=== PATIENT | female | born 1995 | race Caucasian/White ===

== ENCOUNTER → 2017-11-16 12:36 | Outpatient (CLI) | payer OTHER, SELFPAY ==
--- NOTE | 2017-11-16 12:44 | RAD_ITS ---
STUDY: X-RAY CHEST REASON FOR EXAM: Female, 22 years old. Dyspnea TECHNIQUE: Frontal and lateral views of the chest. COMPARISON: None. FINDINGS: The lungs are clear and expanded. There is no demonstrated pleural abnormality. Normal size heart. Normal mediastinum and rena. Normal visualized pulmonary arteries. Normal visualized aortic arch and descending thoracic aorta. Normal visualized thoracic spine. Normal visualized ribs, clavicles, and shoulders. There is no demonstrated abnormality of the visualized soft tissue structures of the upper abdomen. RAD/Chest PA and Lateral IMPRESSION: Normal x-ray examination of the chest. Electronically Signed: Flynn Monroy MD at 23:55 EDT , Service support ,
[2017-11-16 14:16] LABS: Hematocrit 42.2 % (37-47); Hemoglobin 13.9 g/dl (12.0-15.0); Mean Corp Hgb Conc 32.9 g/gl (32-36); Mean Corpuscular Hgb 27.5 pg (27.0-32.0); Mean Corpuscular Volume 83.4 fL (81-99); Mean Platelet Vol. 10.5 fl (6.2-12.0); Platelet Count 196 K/mm3 (150-450); RBC Distribution Width CV 12.3 % (11.6-14.6); Red Blood Count 5.06 M/mm3 (4.2-5.4); Scan Indicated on CBC? Y/N NO; White Blood Count 5.9 K/mm3 (4.4-11.0)
[2017-11-16 14:31] LABS: Anion Gap 6 (5-15); BUN 16 mg/dL (7-18); BUN/Creat Ratio 20.4 RATIO (10-20); Calcium,Total 9.4 mg/dL (8.5-10.1); Chloride 108 mmol/L (98-107); Creatinine, Serum 0.78 mg/dL (0.55-1.02); EST Glomerular Filtration Rate 98 mL/min (>60); Est Glom Filt Rate - Afr Amer 119 mL/min (>60); Glucose 88 mg/dL (74-106); Potassium 3.7 mmol/L (3.5-5.1); Sodium Level 140 mmol/L (136-145); Thyroid Stim Hormone (TSH) 1.99 uIU/mL (0.358-3.74)
== END ==
PROVIDERS: Family Provider Family Medicine; PCP Family Medicine; Visit Provider Family Medicine
DX: R06.00 Dyspnea, unspecified (principal)
CPT/HCPCS: 36415; 71046; 80048; 84443; 85027

== ENCOUNTER → 2017-12-24 11:03 | Outpatient (CLI) | payer OTHER, SELFPAY ==
--- NOTE | 2017-12-24 11:10 | RAD_ITS ---
STUDY: XR SPINE ENTIRE THORACIC T LUMBAR (W SKULL, CERVICAL AND SACRAL SPINE IF PERFORMED) REASON FOR EXAM: Female, 22 years old. Possible scoliosis. TECHNIQUE: Radiological exam, spine, entire thoracic and lumbar, including skull, cervical and sacral spine if performed (eg, scoliosis evaluation); 1 view COMPARISON: None. FINDINGS: There is a 5 degree dextroscoliosis of the thoracic spine with the apex of the convexity at the T7 level. There is a 5 degree levoscoliosis scoliosis of the lumbar spine with the apex of the convexity at the L2 level. The soft tissue structures are unremarkable. RAD/Scoliosis 1 view IMPRESSION: Mild scoliosis. Electronically Signed: Aaron Carlson MD at 9:53 EDT Tel [phone], Service support ,
== END ==
PROVIDERS: Family Provider Family Medicine; PCP Family Medicine; Visit Provider Family Medicine
DX: M41.9 Scoliosis, unspecified (principal); R06.00 Dyspnea, unspecified
CPT/HCPCS: 72081

== ENCOUNTER → 2018-01-11 10:41 | Outpatient (CLI) | payer OTHER, SELFPAY ==
--- NOTE | 2018-01-11 10:41 | DT_ITS ---
This patient was seen during an EMR downtime January 07, 2018 - January 14, 2018. This patient may have a combination of paper and electronic documentation or all paper documentation. All documentation is viewable within the e-chart portion of [employer] for each patient visit.
--- NOTE | 2018-01-11 10:47 | ECHOD_ITS ---
Reason For Study: SOB Procedure This was a 2D Doppler, Color Flow transthoracic echocardiogram. Exam performed in department. Left Ventricle Normal LV size. Left ventricular systolic function is normal. The estimated ejection fraction is 55 %. No evidence for diastolic dysfunction. No regional wall motion abnormalities noted. Right Ventricle Normal RV size. Normal systolic function. Atria Normal left atrium. Normal right atrium. Mitral Valve Normal mitral valve. Tricuspid Valve Normal tricuspid valve. Mild (1+) tricuspid valve insufficiency. Pulmonary artery systolic pressure is 20 mmHg. Aortic Valve Normal aortic valve. Trisinus/trileaflet aortic valve. Pulmonic Valve Normal pulmonic valve. Great Vessels Normal aortic root. The pulmonary artery is normal size. Normal inferior vena cava. Pericardium/Pleural No pericardial effusion. MMode/2D Measurements & Calculations LVIDd: 3.5 cm IVSd: 0.88 cm Ao root diam: 2.8 cm LVIDs: 2.4 cm LVPWd: 0.75 cm LA dimension: 2.4 cm RVDd: 2.6 cm FS: 32.2 % LAV(MOD-bp): 20.8 ml EDV(MOD-sp4): 53.5 ml SV(MOD-sp4): 33.6 ml LAV(MOD-bp) Indexed: 11.8 ml/m2 ESV(MOD-sp4): 19.8 ml LAV(MOD-sp2): 22.4 ml EF(MOD-sp4): 62.9 % LAV(MOD-sp4): 18.6 ml LA A4 area: 9.4 cm2 RA A4 area: 7.0 cm2 Doppler Measurements & Calculations MV E max lemuel: 110.9 cm/sec Lat Peak E' Lemuel: 12.2 cm/sec Med Peak E' Lemuel: 10.3 cm/sec MV A max lemuel: 71.7 cm/sec E/E' lat: 9.1 E/E' med: 10.7 MV E/A: 1.5 Ao V2 max: 120.5 cm/sec LV V1 max: 90.9 cm/sec PA V2 max: 106.3 cm/sec Ao max P.8 mmHg LV V1 max P.3 mmHg TR max lemuel: 202.6 cm/sec TR max P.4 mmHg Interpretation Summary Normal LV size. Left ventricular systolic function is normal. The estimated ejection fraction is 55 %. No evidence for diastolic dysfunction. Structurally normal valves. Ordering Physician: Carlo Martinez Referring Physician: Carlo Martinez Performed By: Fawn Isaacs RDCS
== END ==
PROVIDERS: Family Provider Family Medicine; PCP Family Medicine; Visit Provider Family Medicine
DX: R06.00 Dyspnea, unspecified (principal)
CPT/HCPCS: 93306

== ENCOUNTER → 2018-07-04 15:19 | Outpatient (CLI) | payer OTHER, SELFPAY ==
[2014-04-25 13:49] VITALS: BMI 16.2
[2018-07-04 17:33] LABS: Hematocrit 39.9 % (37-47); Hemoglobin 13.6 g/dl (12.0-15.0); Mean Corp Hgb Conc 34.1 g/gl (32-36); Mean Corpuscular Hgb 28.7 pg (27.0-32.0); Mean Corpuscular Volume 84.2 fL (81-99); Mean Platelet Vol. 11.1 fl (6.2-12.0); Platelet Count 192 K/mm3 (150-450); RBC Distribution Width CV 12.4 % (11.6-14.6); RBC Distribution Width SD 36.9 fl (35.1-43.9); Red Blood Count 4.74 M/mm3 (4.2-5.4); White Blood Count 6.7 K/mm3 (4.4-11.0)
[2018-07-04 17:39] LABS: Scan Indicated on CBC? Y/N NO
[2018-07-04 17:53] LABS: Erythrocyte Sedimentation Rate 1 mm/hr (0-20)
[2018-07-04 18:02] LABS: Vitamin B12 368 pg/mL (211-911); Vitamin D,25 Hydroxy 13.9 ng/mL (29.95-100.01)
[2018-07-04 18:07] LABS: BUN 10 mg/dL (7-18); Creatinine, Serum 0.86 mg/dL (0.55-1.02); Glucose 71 mg/dL (74-106)
[2018-07-04 18:08] LABS: ALB/GLOB Ratio 1.3 RATIO (0.9-2.4); AST(SGOT) 16 U/L (15-37); Alanine Aminotransfer ALT/SGPT 20 U/L (13-56); Albumin, Serum 4.3 g/dL (3.2-5.0); Alkaline Phosphatase 68 U/L (45-117); Anion Gap 9 (5-15); BUN/Creat Ratio 11.6 RATIO (10-20); Calcium,Total 9.1 mg/dL (8.5-10.1); Chloride 109 mmol/L (98-107); EST Glomerular Filtration Rate 87 mL/min (>60); Est Glom Filt Rate - Afr Amer 106 mL/min (>60); Globulin 3.3 g/dL (2.2-4.2); Iron 81 ug/dL (50-170); Potassium 3.7 mmol/L (3.5-5.1); Protein, Total 7.6 g/dL (6.4-8.2); Sodium Level 142 mmol/L (136-145); Thyroid Stim Hormone (TSH) 1.17 uIU/mL (0.358-3.74)
--- OUTSIDE RECORDS SUMMARY | 2018-08-29 21:29 | XMS RPT_ITS ---
:1995 Author Organization OHIP Support Name Relationship Address Phone ACCESS LIMITED Unavailable . + [place] [address] BEBOUT, SHANDRA Unavailable [address] + [place] [address] FORDENWALT, TERE Unavailable [address] + [place] [address] BEBOUT, YADY Unavailable [address] + [place] [address] ACCESS LIMITED Unavailable . + [place] [address] BEBOUT, SHANDRA Unavailable [address] + [place] [address] FORDENWALT, TERE Unavailable [address] + [place] [address] ACCESS LIMITED Unavailable . + [place] [address] BEBOUT, SHANDRA Unavailable [address] + [place] [address] FORDENWALT, TERE Unavailable [address] + [place] [address] ACCESS LIMITED Unavailable . + [place] [address] BEBOUT, SHANDRA Unavailable [address] + [place] [address] FORDENWALT, TERE Unavailable [address] + [place] [address] ACCESS LIMITED Unavailable . + [place] [address] BEBOUT, SHANDRA Unavailable [address] + [place] [address] TERE MUHAMMAD Unavailable [address] + [place] [address] Care Team Providers Name Role Phone MASOUD PAYTON Attending Unavailable TATAMASOUD Referring Unavailable CHRISTIANO RAYA Primary Care Unavailable Carl Rayaer Attending Unavailable Michelle, Christadrianer Primary Care Unavailable Randaysi, Christopher Attending Unavailable Ranney, Christopher Referring Unavailable Ranney, Christopher Primary Care Unavailable Ranney, Christopher Attending Unavailable Ranney, Christopher Referring Unavailable Ranney, Christopher Primary Care Unavailable ProsperMarty cheathamril Attending Unavailable Ranney, Christopher Referring Unavailable Ranney, Christopher Attending Unavailable Ranney, Christopher Primary Care Unavailable PROBLEMS PROBLEMS DATE TYPE CONDITION / CODE ATTENDING STATUS SOURCE 01/30/2018 Unknown R06.00 - Dyspnea, Ranney, Active Laura unspecified / [facility] R06.00(ICD-10) Hospital Repository 02/15/2018 Unknown R06.02 - Prosper, [place] Active [facility] R06.02(ICD-10) Repository 01/18/2018 Unknown M41.9 - Ranney, Active Laura Scoliosis, [facility] unspecified / Hospital M41.9(ICD-10) Repository PROCEDURES PROCEDURES No Procedure Records FoundRESULTS RESULTS CBC-COMPLETE BLOOD CNT Collected: 07/04/2018 Status: F Source: [place] NO DIFF 3:20 PM [facility] REPOSITORY TYPE CODE TESTS RESULT OUT OF RANGE REFERENCE UNITS LAB L100.1000 4.4-11.0 K/mm3 Normal WBC 6.7 LAB L100.1200 4.2-5.4 M/mm3 Normal RBC 4.74 LAB L100.1300 12.0-15.0 g/dl Normal HGB 13.6 LAB L100.1400 37-47 % Normal HCT 39.9 LAB L100.1500 81-99 fL Normal MCV 84.2 LAB L100.1600 27.0-32.0 pg Normal MCH 28.7 LAB L100.1700 32-36 g/gl Normal MCHC 34.1 LAB L100.1810 11.6-14.6 % Normal RDW CV 12.4 LAB L100.1820 35.1-43.9 fl Normal RDW SD 36.9 LAB L100.1900 150-450 K/mm3 Normal PLT 192 LAB L100.2000 6.2-12.0 fl Normal MPV 11.1 Performed By: #### L100.0500, L101.9900, L503.0105, L506.1000, L500.4050, L501.9520, L503.6150 #### [facility] [address] [place], [address] ERYTHROCYTE SED RATE Collected: 07/04/2018 Status: F Source: [place] 3:20 PM [facility] REPOSITORY TYPE CODE TESTS RESULT OUT OF RANGE REFERENCE UNITS LAB L102.0000 0-20 mm/hr Normal SED RATE 1 Performed By: #### L100.0500, L101.9900, L503.0105, L506.1000, L500.4050, L501.9520, L503.6150 #### [facility] [address] [place], [address] VITAMIN B12 Collected: 07/04/2018 Status: F Source: [place] 3:20 PM [facility] REPOSITORY TYPE CODE TESTS RESULT OUT OF RANGE REFERENCE UNITS LAB L503.0105 211-911 pg/mL Normal Vitamin B12 368 Performed By: #### L100.0500, L101.9900, L503.0105, L506.1000, L500.4050, L501.9520, L503.6150 #### [facility] [address] [place], [address] VITAMIN D,25 HYDROXY Collected: 07/04/2018 Status: F Source: [place] 3:20 PM [facility] REPOSITORY TYPE CODE TESTS RESULT OUT OF REFERENCE UNITS RANGE LAB L506.1000 29.95-100.01 ng/mL Low Vitamin D 13.9 25-OH Result Comment: Vitamin D 25(OH) Status Range Deficiency <20 ng/mL (50nmol/L) Insuffciency 20 - 30 ng/mL (50 - 75 nmol/L) Sufficiency 30 - 100 ng/mL (75 - 250 nmol/L) Toxicity >100 ng/mL (>250 nmol/L) Performed By: #### L100.0500, L101.9900, L503.0105, L506.1000, L500.4050, L501.9520, L503.6150 #### [facility] [address] [place], [address] COMPREHENSIVE METABOLIC Collected: 07/04/2018 Status: F Source: [place] [facility] 3:20 PM [facility] REPOSITORY TYPE CODE TESTS RESULT OUT OF RANGE REFERENCE UNITS LAB L501.0100 74-106 mg/dL Low GLU 71 Result Comment: Please note revised GLUCOSE reference range effective 2017. LAB L501.1000 7-18 mg/dL Normal BUN 10 LAB L501.1100 0.55-1.02 mg/dL Normal CREAT,SERUM 0.86 Result Comment: The validity of the calculated GFR AND GFRAA in patients over 70 years has not been determined. Clinical correlation is essential. LAB L501.1110 >60 mL/min Normal EST GFR 87 Result Comment: Non- GFR Calc LAB L501.1115 >60 mL/min Normal EST GFR - AA 106 Result Comment: GFR Calc LAB L501.1300 10-20 RATIO Normal BUN/CRE 11.6 LAB L501.1500 6.4-8.2 g/dL T Normal PROT 7.6 LAB L501.1800 3.2-5.0 g/dL Normal ALB 4.3 LAB L501.1950 2.2-4.2 g/dL Normal GLOB 3.3 LAB L501.2000 0.9-2.4 RATIO Normal A/G 1.3 LAB L501.2200 8.5-10.1 mg/dL CA Normal 9.1 LAB L501.4100 15-37 U/L Normal AST 16 LAB L501.4305 45-117 U/L Normal ALK P 68 LAB L501.4405 13-56 U/L Normal ALT 20 LAB L501.4600 0.20-1.00 mg/dL T Normal BILI 0.50 LAB L501.5300 136-145 mmol/L NA Normal 142 LAB L501.5600 3.5-5.1 mmol/L K Normal 3.7 LAB L501.5900 98-107 mmol/L High CL 109 LAB L501.6100 21.0-32.0 mmol/L Normal CO2 24.0 LAB L501.6200 5-15 Normal GAP 9 Performed By: #### L100.0500, L101.9900, L503.0105, L506.1000, L500.4050, L501.9520, L503.6150 #### [facility] [address] [place], [address] THYROID STIM HORMONE Collected: 07/04/2018 Status: F Source: [place] (TSH) 3:20 PM [facility] REPOSITORY TYPE CODE TESTS RESULT OUT OF RANGE REFERENCE UNITS LAB L501.9520 0.358-3.74 uIU/mL Normal TSH 1.17 Performed By: #### L100.0500, L101.9900, L503.0105, L506.1000, L500.4050, L501.9520, L503.6150 #### [facility] [address] [facility] [place], [address] IRON Collected: 07/04/2018 Status: F Source: [place] 3:20 PM [facility] REPOSITORY TYPE CODE TESTS RESULT OUT OF RANGE REFERENCE UNITS LAB L503.6150 50-170 ug/dL Normal IRON 81 Performed By: #### L100.0500, L101.9900, L503.0105, L506.1000, L500.4050, L501.9520, L503.6150 #### [facility] [address] [facility] [place], [address] DOWNTIME REPORT Observed: 01/24/2018 Status: F Source: [place] 12:23 PM [facility] REPOSITORY [facility] Medical Records Department [address] [place] [address] Downtime Report MR#: [id number] Acct: [id number] Name: CHANTEL DEL ROSARIO Rep #: [id number] : 1995 22 From: Mayank Raphael PCP: Christiano Raya MD Status: REG CLI This patient was seen during an EMR downtime January 07, 2018 - January 14, 2018. This patient may have a combination of paper and electronic documentation or all paper documentation. All documentation is viewable within the e-chart portion of [employer] for each patient visit. ECHOCARDIOGRAM COMPLETE Observed: 01/16/2018 Status: F Source: [place] 10:14 AM [facility] REPOSITORY [facility] Cardiovascular Services [address] [place] [address] Echo Complete 01/11/18 1100 MR#: [id number] Acct: [id number] Name: CHANTEL DEL ROSARIO Rep #: [id number] : 1995 From: Az Cheng MD Attending Dr: Christiano Raya MD Status: REG CLI Ordering Dr: Rony Raya MD Date: 01/11/18 Location: [facility] Sex: F C Admitted: Reason For Study: SOB Procedure This was a 2D Doppler, Color Flow transthoracic echocardiogram. Exam performed in department. Left Ventricle Normal LV size. Left ventricular systolic function is normal. The estimated ejection fraction is 55 %. No evidence for diastolic dysfunction. No regional wall motion abnormalities noted. Right Ventricle Normal RV size. Normal systolic function. Atria Normal left atrium. Normal right atrium. Mitral Valve Normal mitral valve. Tricuspid Valve Normal tricuspid valve. Mild (1+) tricuspid valve insufficiency. Pulmonary artery systolic pressure is 20 mmHg. Aortic Valve Normal aortic valve. Trisinus/trileaflet aortic valve. Pulmonic Valve Normal pulmonic valve. Great Vessels Normal aortic root. The pulmonary artery is normal size. Normal inferior vena cava. Pericardium/Pleural No pericardial effusion. MMode/2D Measurements AND Calculations LVIDd: 3.5 cm IVSd: 0.88 cm Ao root diam: 2.8 cm LVIDs: 2.4 cm LVPWd: 0.75 cm LA dimension: 2.4 cm RVDd: 2.6 cm FS: 32.2 % LAV(MOD-bp): 20.8 ml EDV(MOD-sp4): 53.5 ml SV(MOD-sp4): 33.6 ml LAV(MOD-bp) Indexed: 11.8 ml/m2 ESV(MOD-sp4): 19.8 ml LAV(MOD-sp2): 22.4 ml EF(MOD-sp4): 62.9 % LAV(MOD-sp4): 18.6 ml LA A4 area: 9.4 cm2 RA A4 area: 7.0 cm2 Doppler Measurements AND Calculations MV E max lemuel: 110.9 cm/sec Lat Peak E' Lemuel: 12.2 cm/sec Med Peak E' Lemuel: 10.3 cm/sec MV A max lemuel: 71.7 cm/sec E/E' lat: 9.1 E/E' med: 10.7 MV E/A: 1.5 Ao V2 max: 120.5 cm/sec LV V1 max: 90.9 cm/sec PA V2 max: 106.3 cm/sec Ao max P.8 mmHg LV V1 max P.3 mmHg TR max lemuel: 202.6 cm/sec TR max P.4 mmHg Interpretation Summary Normal LV size. Left ventricular systolic function is normal. The estimated ejection fraction is 55 %. No evidence for diastolic dysfunction. Structurally normal valves. Ordering Physician: Christiano Raya Referring Physician: Christiano Raya Performed By: Fawn Isaacs RDCS 01/16/18 1014 Date Az Cheng MD CC: Christiano Raya MD Date Dictated: 01/11/18 1100 Date Transcribed: 01/16/18 1014 Infection Prevention Coordinator: Signed SCOLIOSIS 1 VIEW Observed: 12/24/2017 Status: F Source: [place] 11:10 AM [facility] REPOSITORY [facility] Imaging Services [address] [place] [address] Scoliosis 1 view MR#: [id number] Acct: [id number] Name: CHANTEL DEL ROSARIO Rep #: [id number] : 1995 F 22 From: Aaron Carlson MD PCP: Christiano Raya MD Status: REG CLI Study: Scoliosis 1 view Date of Exam: 12/24/17 Exam# [id number] Ordering Dr: Rony Raya MD STUDY: XR SPINE ENTIRE THORACIC T LUMBAR (W SKULL, CERVICAL AND SACRAL SPINE IF PERFORMED) REASON FOR EXAM: Female, 22 years old. Possible scoliosis. TECHNIQUE: Radiological exam, spine, entire thoracic and lumbar, including skull, cervical and sacral spine if performed (eg, scoliosis evaluation); 1 view COMPARISON: None. FINDINGS: There is a 5 degree dextroscoliosis of the thoracic spine with the apex of the convexity at the T7 level. There is a 5 degree levoscoliosis scoliosis of the lumbar spine with the apex of the convexity at the L2 level. The soft tissue structures are unremarkable. RAD/Scoliosis 1 view IMPRESSION: Mild scoliosis. Electronically Signed: Aaron Carlson MD at 9:53 EDT Tel [phone], Service support , CC: Christiano Raya MD Infection Prevention Coordinator: Signed CBC-COMPLETE BLOOD CNT Collected: 11/16/2017 Status: F Source: [place] NO DIFF 12:49 PM [facility] REPOSITORY Order Comment: Order Date: 11/16/17 Order Info: [id number] - CBC TYPE CODE TESTS RESULT OUT OF RANGE REFERENCE UNITS LAB L100.1000 4.4-11.0 K/mm3 Normal WBC 5.9 LAB L100.1200 4.2-5.4 M/mm3 Normal RBC 5.06 LAB L100.1300 12.0-15.0 g/dl Normal HGB 13.9 LAB L100.1400 37-47 % Normal HCT 42.2 LAB L100.1500 81-99 fL Normal MCV 83.4 LAB L100.1600 27.0-32.0 pg Normal MCH 27.5 LAB L100.1700 32-36 g/gl Normal MCHC 32.9 LAB L100.1810 11.6-14.6 % Normal RDW CV 12.3 LAB L100.1820 35.1-43.9 fl Normal RDW SD 37.0 LAB L100.1900 150-450 K/mm3 Normal PLT 196 LAB L100.2000 6.2-12.0 fl Normal MPV 10.5 Performed By: #### L100.0500, L500.2500, L501.9520 #### [facility] [address] [place], [address] BASIC METABOLIC Collected: 11/16/2017 Status: F Source: [place] PROFILE (BMP) 12:49 PM [facility] REPOSITORY Order Comment: Order Date: 04/13/18 Order Info: [id number] - BMP Order Info: 3016-3 - [place] TYPE CODE TESTS RESULT OUT OF RANGE REFERENCE UNITS LAB L501.0100 74-106 mg/dL Normal GLU 88 Result Comment: Please note revised GLUCOSE reference range effective 2017. LAB L501.1000 7-18 mg/dL Normal BUN 16 LAB L501.1100 0.55-1.02 mg/dL Normal CREAT,SERUM 0.78 Result Comment: The validity of the calculated GFR AND GFRAA in patients over 70 years has not been determined. Clinical correlation is essential. LAB L501.1110 >60 mL/min Normal EST GFR 98 Result Comment: Non- GFR Calc LAB L501.1115 >60 mL/min Normal EST GFR - AA 119 Result Comment: GFR Calc LAB L501.1300 10-20 RATIO High BUN/CRE 20.4 LAB L501.2200 8.5-10.1 mg/dL CA Normal 9.4 LAB L501.5300 136-145 mmol/L NA Normal 140 LAB L501.5600 3.5-5.1 mmol/L K Normal 3.7 LAB L501.5900 98-107 mmol/L High CL 108 LAB L501.6100 21.0-32.0 mmol/L Normal CO2 26.0 LAB L501.6200 5-15 Normal GAP 6 Performed By: #### L100.0500, L500.2500, L501.9520 #### [facility] [address] [place], [place], [address] THYROID STIM HORMONE Collected: 11/16/2017 Status: F Source: [place] (TSH) 12:49 PM [facility] REPOSITORY Order Comment: Order Date: 11/16/17 Order Info: [id number] - BMP Order Info: 3016-3 - TSH TYPE CODE TESTS RESULT OUT OF RANGE REFERENCE UNITS LAB L501.9520 0.358-3.74 uIU/mL Normal TSH 1.99 Performed By: #### L100.0500, L500.2500, L501.9520 #### [facility] [address] [place], [place], [address] CHEST PA AND LATERAL Observed: 11/16/2017 Status: F Source: [place] 12:44 PM [facility] REPOSITORY [facility] Imaging Services [address] [place] [address] Chest PA and Lateral MR#: [id number] Acct: [id number] Name: CHANTEL DEL ROSARIO Rep #: [id number] : 1995 F 22 From: Flynn Monroy MD PCP: Christiano Raya MD Status: REG CLI Study: Chest PA and Lateral Date of Exam: 11/16/17 Exam# [id number] Ordering Dr: Rony Raya MD STUDY: X-RAY CHEST REASON FOR EXAM: Female, 22 years old. Dyspnea TECHNIQUE: Frontal and lateral views of the chest. COMPARISON: None. FINDINGS: The lungs are clear and expanded. There is no demonstrated pleural abnormality. Normal size heart. Normal mediastinum and rena. Normal visualized pulmonary arteries. Normal visualized aortic arch and descending thoracic aorta. Normal visualized thoracic spine. Normal visualized ribs, clavicles, and shoulders. There is no demonstrated abnormality of the visualized soft tissue structures of the upper abdomen. RAD/Chest PA and Lateral IMPRESSION: Normal x-ray examination of the chest. Electronically Signed: Flynn Monroy MD at 23:55 EDT , Service support , CC: Christiano Raya MD Infection Prevention Coordinator: Signed ALLERGIES ALLERGIES No Allergies Records FoundENCOUNTERS ENCOUNTERS ADMIT/DISCHARGE ACCOUNT ADMITTING ENCOUNTER LOCATION SOURCE NUMBER CLASS 07/04/2018 [id number] [facility] ing:MFPLAB Repository 05/29/2018/05/29/20 [id number] Ambulatory Building:[address] Repository 01/11/2018 [id number] [facility] ing:CVS Repository 01/11/2018 [id number] Ambulatory BMSBuilding:W [facility] Repository 12/24/2017 [id number] [facility] ing:MTRAD Repository 11/16/2017 [id number] [facility] ing:MTLAB Repository PAYERS PAYERS ENCOUNTER GUARANTOR PAYER SUBSCRIBER SOURCE 07/04/2018 SCHYLAR L Primary Shandra [facility] [id number] [address] Insurance:SUMMA BeboutDOB: [place], [place] CAREPolicy Number: [id number] [facility] [address]Amk: (049) [id number] Repository [phone] (HP) Date:[id number] [address]BM: 07/04/2018 Secondary Shandra [facility] Insurance:BE BeboutDOB: [facility] [id number] Hospital Number: Repository [id number] Date:2018-07-04P [facility] [address], [place] [address]MQ: 07/04/2018 Tertiary NOT GIVENUNK Laura Insurance:SELF PAY [facility] Number: Effective Repository Date:2018-07-04 05/29/2018 SCHYLAR Primary YADY BEBOUTDOB: [facility] BEBOUTDOB: Insurance:SUMMACAREPo [id number] [facility] [id number] licy Number: [address] Repository [address] [facility] [id number] [address] [place] Date: [id number]: (HP) 05/29/2018 Secondary YADY BEBOUTDOB: [facility] Insurance:BE [id number] [facility] [address] Repository Number: [place] [address] [id number] Date: 01/11/2018 SCHYLAR L Primary Shandra [facility] [id number] [address] Insurance:SUMMA [facility]: [id number] [address]Yio: (330) [id number] Repository [phone] (HP) Date:4892-50-52[address] [address]PK: 01/11/2018 Secondary Shandra [facility] Insurance:BE BeboutDOB: [facility] [id number] Hospital Number: Repository [id number] Date:2017-12-25P [address] [place] [address] 16[address]XL: 01/11/2018 Tertiary NOT GIVENUNK [facility] Insurance:SELF PAY [facility] Number: Effective Repository Date:2017-12-25 01/11/2018 SCHYLAR L Primary Shandra [facility] [id number] [address] Insurance:SUMMA BeboutDOB: [facility] Number: [id number] Hospital [address]Sqe: (330) [id number] Repository [phone] (HP) Date:7068-51-04JY [address] [place] [address]BC: 01/11/2018 Secondary Shandra [facility] Insurance:BE BeboutDOB: [facility] [id number] Hospital Number: Repository [id number] Date:2017-12-25[address] [place] [address]YR: 01/11/2018 Tertiary NOT GIVENUNK Laura Insurance:SELF [facility]Y [facility] Number: Effective Repository Date:2018-01-11 12/24/2017 SCHYLAR L Primary Shandra [facility] [id number] [address] Insurance:SUMMA BeboutDOB: [facility] Number: [id number] Hospital 813[address]Kde: (330) [id number] Repository [phone] (HP) Date:2736-50-76DF [address] [address]AH: 12/24/2017 Secondary Hsandra [facility] Insurance:BE BeboutDOB: [facility] [id number] Hospital Number: Repository [id number] Date:2017-12-24P [address] [place], [place] [address], [place] [address]BY: 12/24/2017 Tertiary NOT GIVENUNK Laura Insurance:SELF PAY [facility] Number: Effective Repository Date:2017-12-24 11/16/2017 CHANTEL Odonnell Primary Shandra [facility] [id number] [address] Insurance:SUMMA BeboutDOB: [facility] Number: [id number] Hospital [address]Ugr: (260) [id number] Repository [phone] () Date:3799-66-03WF [address] [address]VL: 11/16/2017 Secondary Shandra [facility] Insurance:BE BeboutDOB: [facility] [id number] Hospital Number: Repository [id number] Date:2017-11-16[address] [place] [address]UA: 11/16/2017 Tertiary NOT GIVENUNK Laura Insurance:SELF PAY [facility] Number: Effective Repository Date:2017-11-16
== END ==
PROVIDERS: Family Provider Family Medicine; PCP Family Medicine; Visit Provider Family Medicine
DX: R53.83 Other fatigue (principal)
CPT/HCPCS: 36415; 80053; 82306; 82607; 83540; 84443; 85027; 85652

== ENCOUNTER → 2018-12-05 17:24 | Outpatient (CLI) | payer OTHER, SELFPAY ==
[2014-04-25 13:49] VITALS: BMI 16.2
--- NOTE | 2018-12-05 17:30 | RAD_ITS ---
HISTORY: back pain, chronic EXAM/TECHNIQUE: XR Spine Thoracic 2 Views: COMPARISON: 12/24/17 spine radiographs.. FINDINGS: # of images incl. paperwork: 3 No fracture or dislocation or osseous destruction. Mild, 5 degrees, right scoliosis centered at T7 similar to prior. Sagittal alignment anatomic. No acute findings in the soft tissues. RAD/Thoracic Spine 3 Views IMPRESSION: No acute findings. Mild right scoliosis unchanged. at 0007 Reported and signed by: Dereje Bradford MD Electronically Signed: eDreje Bradford, at 0:06 EDT Tel , Service support ,
--- NOTE | 2018-12-05 17:31 | RAD_ITS ---
STUDY: X-RAY - LUMBAR SPINE REASON FOR EXAM: Female, 23 years old. Pain TECHNIQUE: 5 view(s) of the lumbar spine were obtained. COMPARISON: None FINDINGS: Normal lumbar lordosis. There is no substantial scoliosis. There is a normal alignment of the vertebrae. Normal vertebral bodies and endplates. Normal disc space heights. The soft tissue structures are unremarkable. RAD/L/S Spine Min 4 Views IMPRESSION: Normal x-ray examination of the lumbar spine. Electronically Signed: Neal Roa DO at 19:56 EDT Tel [phone], Service support ,
== END ==
PROVIDERS: Family Provider Family Medicine; PCP Family Medicine; Referring Provider Family Medicine; Visit Provider Family Medicine
DX: M54.9 Dorsalgia, unspecified (principal)
CPT/HCPCS: 72072; 72110

== ENCOUNTER → 2019-01-19 15:08 | Outpatient (CLI) | payer OTHER, SELFPAY ==
[2019-01-18 10:33] VITALS: BMI 19.0
== END ==
PROVIDERS: Family Provider Family Medicine; PCP Family Medicine; Referring Provider Physician Assistant Medical; Visit Provider Physician Assistant Medical
DX: J02.9 Acute pharyngitis, unspecified (principal)
CPT/HCPCS: 87081

== ENCOUNTER 2019-03-10 12:00 | Outpatient (RCR) | payer OTHER, SELFPAY ==
--- NOTE | 2018-12-27 12:27 | HP.PTEVAL ---
Patient's Visit Information CHANTEL DEL ROSARIO is a 23 year old F referred to Physical Therapy by Rony Martinez MD with a diagnosis of CHRONIC BACK PAIN. Date of Evaluation: 12/27/18 Physical Therapist: Linda Selby PT, Cert MDT - Visit Plan Frequency: 2-3x /Week Duration: 4-6 Weeks Plan: AQUATIC THERAPY FOR PAIN RELEIF, POSTURE CORRECTION/STRENGTHENING, INSTRUCTION IN APPROPRIATE BODY MECHANICS AND ACTIVITY MODIFICATIONS. DLS STARTING WITH A NEUTRAL SPINE PROGRESSING ROM TOLERATED. DEANN LE ROM, STRETCHING AND STRENGTHENING. HEP INSTRUCTION. 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 CURRENTLY NOT ON WORK RESTRICTIONS BECAUSE NOT ALLOWED BUT DR. MANLEY WROTE A NOTE FOR HER TO SIT. SEEING DR. MANLEY FOR VOCAL CORD DYSFUCNTION. PLAYED [employer] FROM ABOUT AGE 4 TO 19 WITHOUT ANY DIFFICULTY. Disability: NO. Present symptoms: BACK PAIN. DENIES DEANN UE PAIN, NUMBNESS OR TINGLING. Present since: APPROX SEP 2017. Pain Scale: WORST 5/10, LEAST 0/10. Currently: 5/10. Commenced as a result of: NO APPARENT REASON. STARTED AT THE SAME TIME HER VOCAL CORD DYSFUNCTION. Symptoms at onset: LOWER BACK. Worse: SITTING, LIFTING THE BOXES AT WORK, JUST LYING IN BED, RIDING IN THE CAR, SOMETIMES STANDING. Better: POSTURE CORRECTION. HAS BEEN TRYING AN ANTIINFLAMMATORY AND MUSCLE RELAXER FOR ABOUT 3 WEEKS AND NOT HELPING. Disturbed sleep: YES. Previous history/Previous treatment: PATIENT REPORTS SHE TRIED CHIROPRACTIC X ABOUT 10 VISITS LAST YEAR AND WAS TOLD SHE HAS SEVERE SCOLIOSIS BUT STOPPED GOING BECAUSE IT MADE SICK - FELT CAR SICK - VOMITING. TRIED TRACTION AT THE CHIROPRACTOR AND WITH A HOME UNIT. TRIED FOAM ROLLER AND BACK BRACE. USES BACK BRACE NEEDED AT WORK. Coughing/sneezing/straining: NEGATIVE. Gait: NORMAL. Difficulty initiating urinatin: NO. Accidents: NO. Unexplained weight loss: NO. Imaging: RECENT THORACIC AND LUMBAR X-RAYS - SEE [facility] EMR - MILD 5 DEG SCOLIOSIS. PMH: VOCAL CORD DYSFUNCTION. Recent major surgery: NO. PLOF (Prior Level of Function): PATIENT REPORTS SHE CAN STILL DO EVERYTHING IT JUST HURTS. OTHER: STATES DR. MANLEY GAVE HER EX'S BUT SHE DOESN'T REMEMBER THEM ALL BECAUSE SHE DOESN'T DO ALL OF THEM. - Objective Sitting/Standing Posture: FAIR. Lordosis: NORMAL. Lateral shift: NO. Relevant shift: N/A. Active Correction of posture: BETTER. Other Observations: INDEP GAIT AND TRANSFERS. UNCOMFORTABLE LOOKING IN SITTING WITH FREQUENT SHIFTING AND FORWARD BENDING. Motor deficit: DEANN LE'S 5/5 WITH MMT'ING EXCEPT DEANN HIPS 4/5 (EXT ROTATORS 4-/5). Sensory deficit: NO. ROM deficit: NO. Reflexes: 2/3. Dural Signs: NEGATIVE. Lumbar mvmt loss: flex - MIN. ext - MOD - FEELS GOOD BUT TIGHT. R SG - MIN - PROVOKES CENTRAL LOWER THORACIC/UPPER LUMBAR PAIN ON THE SPINE. L SG - MIN. Core strength: POOR. Palpation: TENDERNESS WITH PALPATION OF THE LOWER THORACIC/UPPER LUMBAR SPINE. - Goals Goal 1:: DECREASE C/O BACK PAIN Goal Time Frame: 4-6 Weeks Goal 2:: IMPROVE LIFTING, SITTING, SLEEP, WORK AND SOCIAL LIFE DYSFUNCTION Goal Time Frame: 4-6 Weeks Goal 3:: INSTRUCT IN PROPHYLAXIS Goal Time Frame: 4-6 Weeks - Rehabilitation Potential Rehabilitation Potential: Fair - Anticipated Interventions Patient/Client Instruction: Educate patient on: Condition, Plan of Care, Risk Factors, Benefits of Fitness Program For the Purpose of:: To improve self management Therapeutic Exercise to Include: Strength training, Body mechanics, Postural training, Flexibilty training, In an aquatic setting, Dynamic Lumbar Stabilization, Scapular Strength/Stabilization For the Purpose of:: To decrease pain, To increase ROM, To improve muscle performance and motor function, To increase tolerance to activity/condition/position, To improve ability of physical actions for home/community/work/leisure, To improve gait and locomotor functions Thank you for the opportunity to evaluate your patient. For Medicare and Medicare HMO plans, please review the plan of care and approve it. It will need to be FAXED BACK to us at [phone] for Medicare purposes. For Medicare only, by signing this I certify the plan of care. Please let me know if there are questions or concerns regarding this plan of care. Physician Signature: Date:
--- NOTE | 2019-03-10 12:22 | HP.PTDCSUM ---
HP - PT D/C Summary It has been my pleasure to treat CHANTEL DEL ROSARIO under orders from Rony Martinez MD, for the diagnosis of CHRONIC BACK PAIN for a total of 9 visit(s). Discharge Date: 03/10/19 Please see the following information for a summary of their discharge status. - Subjective Subjective: PATIENT REPORTS SHE IS A LOT BETTER. HAS BEEN ON VACATION. SOME PAIN WITH 11 HOUR CAR TRIP BUT BETTER NOW. PATIENT REPORTS SHE CAN DO A LOT MORE THAN SHE COULD BEFORE. SHE REPORTS ALL OF HER DAILY CHORES AND REMODELING HOUSE SHE CAN DO NOW WITHOUT PAIN. HAS BEEN OFF WORK FOR ABOUT 3 WEEKS USING VACATION (NOT DUE TO BACK CONDITION) GOES BACK NEXT WEEK. HAS BEEN DOING HER HOME EX'S. STATES SHE IS READY TO BE DISCHARGED. PATIENT REPORTS SHE HAS BEEN WORKING ON HER POSTURE TOO AND SHE IS REALLY GLAD SHE CAME TO PHYSICAL THERAPY. - Pain Lumbar Spine Pain Intensity (Out of 10): 1 - Overall Improvement % Improvement: 90 - Objective Objective/Function: ALL GOALS MET. INDEP GAIT AND TRANSFERS. APPEARS TO BE VERY COMFORTABLE IN SITTING NOW AND USING GOOD POSTURE. Motor deficit: DEANN LE'S 5/5. Sensory deficit: NO. ROM deficit: NO. Dural Signs: NEGATIVE. LUMBAR ROM IS WFL ALL PLANES NOW AND PAINFREE WITH TESTING. Core strength: POOR. Palpation: NO TENDERNESS - Goals Goal 1:: DECREASE C/O BACK PAIN Goal Progress: Goal Met Goal 2:: IMPROVE LIFTING, SITTING, SLEEP, WORK AND SOCIAL LIFE DYSFUNCTION Goal Progress: Goal Met Goal 3:: INSTRUCT IN PROPHYLAXIS Goal Progress: Goal Met - Plan Plan: D/C TO INDEP EX. PATIENT IS AGREEABLE. - D/C Information If there are questions or concerns regarding this patient's physical therapy, please feel free to call me at [phone]. Thank you for the referral of this patient. Sincerely, Linda Selby, PT, Cert MDT
== END 2019-03-10 19:00 | disposition home or self-care (01) ==
LOC: PT 12:00
PROVIDERS: Family Provider Family Medicine; PCP Family Medicine; Referring Provider Family Medicine; Visit Provider Family Medicine
DX: M54.9 Dorsalgia, unspecified (principal); G89.29 Other chronic pain
CPT/HCPCS: 97113; 97161; 97530

== ENCOUNTER 2019-05-26 14:00 | Emergency (ER) | payer OTHER, SELFPAY ==
[2019-01-18 10:33] VITALS: BMI 19.0
[2019-05-26 14:01] VITALS: BP 151/89; PULSE 117; RESP 18; TEMP 36.9; O2SAT 99; BMI 19.8
[2019-05-26 14:13] VITALS: BP 143/92; PULSE 102; RESP 18; O2SAT 99
--- NOTE | 2019-05-26 14:33 | EKG12_ITS ---
Test Reason : SOB Blood Pressure : / mmHG Vent. Rate : 092 BPM Atrial Rate : 092 BPM P-R Int : 142 ms QRS Dur : 080 ms QT Int : 350 ms P-R-T Axes : 067 076 068 degrees QTc Int : 432 ms Normal sinus rhythm with sinus arrhythmia Normal ECG Confirmed by DIAMOND MO, BELEN ([id number]), acquisitions editor GALILEA TAVAREZ ([id number]) on 05/30/2019 10:34:14 AM Referred By: RAMSES/LUZ Confirmed By:BELEN FIELDS MD
--- NOTE | 2019-05-26 14:44 | RAD_ITS ---
STUDY: X-RAY CHEST REASON FOR EXAM: Female, 23 years old. Chest pain and shortness of breath TECHNIQUE: PA and lateral views of the chest. COMPARISON: November 16, 2017 chest x-ray FINDINGS: Nonspecific hyperinflation of the lungs similar to prior study. There is no demonstrated pleural abnormality. Normal size heart. Normal mediastinum and rena. Normal visualized pulmonary arteries. Normal visualized aortic arch and descending thoracic aorta. Normal visualized thoracic spine. Normal visualized ribs, clavicles, and shoulders. There is no demonstrated abnormality of the visualized soft tissue structures of the upper abdomen. RAD/Chest PA and Lateral IMPRESSION: Non-Specific hyperinflation of the lungs no evidence of acute focal infiltrate. Electronically Signed: Chinyere Mensah MD at 15:42 EDT Tel , Service support ,
[2019-05-26 14:53] LABS: Absolute Lymphocyte Count 1.75 X10^3/uL (0.83-4.51); Absolute Neutrophil Count 4.6 X10^3/uL (2.0-7.7); Basophil# 0.03 X10^3/uL; Basophil% 0.4 % (0-1); Eosinophil# 0.08 X10^3/uL; Eosinophils% 1.1 % (0-5); Hematocrit 41.4 % (37-47); Lymphocyte # 1.75 X10^3/ul (4.0); Lymphocyte % 25.1 % (19-41); Mean Corp Hgb Conc 33.8 g/dL (32-36); Mean Corpuscular Hgb 28.2 pg (27.0-32.0); Mean Corpuscular Volume 83.5 fL (81-99); Mean Platelet Vol. 10.4 fl (6.2-12.0); Monocyte# 0.54 X10^3/uL; Monocyte% 7.7 % (0-10); NRBC Flagged by Analyzer 0 % (0-5); Neutrophil # 4.55 X10^3/uL (2.7-7.7); Neutrophil % 65.4 % (47-70); Platelet Count 185 K/mm3 (150-450); RBC Distribution Width CV 11.9 % (11.6-14.6); RBC Distribution Width SD 35.9 fl (35.1-43.9); Red Blood Count 4.96 M/mm3 (4.2-5.4)
[2019-05-26 15:02] LABS: Anion Gap 7 (5-15); BUN 13 mg/dL (7-18); BUN/Creat Ratio 14.7 RATIO (10-20); Calcium,Total 9.6 mg/dL (8.5-10.1); Chloride 107 mmol/L (98-107); Creatinine, Serum 0.89 mg/dL (0.55-1.02); EST Glomerular Filtration Rate 84 mL/min (>60); Est Glom Filt Rate - Afr Amer 102 mL/min (>60); Estimated Creatinine Clearance 100.96 ml/min; Glucose 101 mg/dL (74-106); Potassium 3.6 mmol/L (3.5-5.1); Sodium Level 139 mmol/L (136-145)
[2019-05-26 15:11] LABS: D-Dimer Quantitative (DVT/PE) < 0.27 FEU/ug/m (0.27-0.49)
[2019-05-26 15:21] VITALS: BP 115/99; PULSE 88; RESP 16; O2SAT 98
--- NOTE | 2019-05-26 15:31 | ED.DCSUM_ITS ---
History of Present Illness Chief Complaint: Shortness of Breath Past Medical History - Allergies and Home Meds Allergies/Adverse Reactions: Allergies No Known Allergies Allergy (Verified 05/26/19 14:01) Primary Care Physician: Rony Martinez MD [Primary Care Provider] - Smoking Status: Never smoker Physical Exam Vital Signs/Narrative: Vital Signs Temp Pulse Resp BP Pulse Ox 05/26/19 15:21 88 16 115/99 H 98 05/26/19 14:13 102 H 18 143/92 H 99 05/26/19 14:01 98.5 F 117 H 18 151/89 H 99 Diagnostic/Tx/Re-eval Chest X-Ray - ED: 2 View, Read by ED Physician, Normal, Heart, Lungs, Mediastinum, Bony Structures, No Acute Disease 05/26/19 14:44 Chest PA and Lateral [RAD] Stat Laboratory Results 05/26/19 05/26/19 05/26/19 14:18 14:18 14:18 WBC 7.0 RBC 4.96 Hgb 14.0 Hct 41.4 MCV 83.5 MCH 28.2 MCHC 33.8 RDW Std Deviation 35.9 RDW Coeff of Hiren 11.9 Plt Count 185 MPV 10.4 Immature Gran % (Auto) 0.300 Neut % (Auto) 65.4 Lymph % (Auto) 25.1 [place] % (Auto) 7.7 Eos % (Auto) 1.1 Baso % (Auto) 0.4 Absolute Neuts (auto) 4.6 Absolute Lymphs (auto) 1.75 Nucleated RBC % 0 D-Dimer Quant (PE/DVT) < 0.27 L Sodium 139 Potassium 3.6 Chloride 107 Carbon Dioxide 25.0 Anion Gap 7 BUN 13 Creatinine 0.89 Estim Creat Clear Calc 100.96 Est GFR (MDRD) Af Amer 102 Est GFR (MDRD) Non-Af 84 BUN/Creatinine Ratio 14.7 Glucose 101 Calcium 9.6 - Medical Decision Making Differential diagnosis pneumonia, SPECT his pneumothorax, pulmonary embolus. Since patient is not PERC negative a d-dimer was obtained. The d-dimer is normal. Chest x-ray is unremarkable. Patient was informed the cause of her pain is unknown. ED Disposition - Plan for ED Patient: Disposition: Home or Assisted Living Diagnosis: Right-sided chest pain Instructions: CHEST PAIN, NonCardiac Referrals: Rony Martinez MD [Primary Care Provider] - 3-5 Days if not improving
[2019-05-26 15:40] VITALS: BP 122/86; PULSE 86; RESP 16; O2SAT 99
== END 2019-05-26 15:43 | disposition home or self-care (01) ==
PROVIDERS: Emergency Provider Emergency Medicine; Family Provider Family Medicine; PCP Family Medicine
DX: R07.9 Chest pain, unspecified (principal); R06.02 Shortness of breath
CPT/HCPCS: 71046; 80048; 85025; 85379; 93005; 99285; A4216

== ENCOUNTER 2022-04-27 09:07 | Outpatient (REF) | payer SELFPAY ==
[2022-04-27 09:07] VITALS: BP 120/78; PULSE 83; RESP 16; TEMP 36.6; O2SAT 100; BMI 19.5
--- NOTE | 2022-04-27 09:32 | EDS_ITS ---
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 Patient is a [employer] employee. 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 No other complaints. Prior similar symptoms: No Recent Illness/Hospitalization: No PFSH PFSH Medical History NECK AND BACK PAIN Shortness of breath Home Medications medroxyprogesterone 150 mg/mL intramuscular suspension IM 84 days #1 mL 01/18/19 [History Last Taken Unknown] Allergy/AdvReac Type Severity Reaction Status Date / Time No Known Allergies Allergy Verified 04/27/22 09:11 Social History Smoking Status: Never smoker alcohol intake: never substance use type: does not use what type of physical activity do you participate in: none ROS ROS ED ROS Narrative Denies recent illness. Review of Systems ROS Unobtainable: Denies due to encephalopathy Constitutional Constitutional ED: Denies chills Eyes Eyes: Denies blurry vision ENT ENT ED: Denies ear pain Cardiovascular Cardiovascular: Denies chest pain Respiratory/Chest Respiratory/Chest: Denies cough Gastrointestinal Gastrointestinal: Denies abdominal pain Genitourinary Genitourinary ED: Denies dysuria Musculoskeletal Musculoskeletal: Denies back pain Integumentary Denies abscess Neurologic Neurologic: Denies headache(s) Psychiatric Psychiatric: Denies anxiety Endocrine Endocrinology: Denies cold intolerance Hematologic/Lymphatic Hematologic/Lymphatic: Denies easy bleeding Allergic/Immunologic Allergic/Immunologic ED: Denies mouth swelling EXAM Physical Exam Narrative Exam Narrative: 26-year-old female no acute distress vital signs stable afebrile. Exam normal. Except right hand index finger palmar aspect mid phalanx there is a needlestick. No signs of infection. No redness, warmth or swelling. Normal range of motion. Const Vital Signs: 04/27/22 09:07 Temperature 97.9 F Temperature Source Temporal Pulse Rate 83 Respiratory Rate 16 Blood Pressure 120/78 Blood Pressure Mean 92 Pulse Ox 100 Oxygen Delivery Method Room Air Positive well nourished and well developed; Negative for obese, cachectic, contractures or unkempt General Appearance ED: well developed and NAD; Negative for unkempt, cachectic, contractures, cyanotic or diaphoretic Nutritional Appearance: Negative for cachectic or obese HEENT Reports moist mucous membranes normocephalic and atraumatic; Negative for trauma or tenderness Eyes PERRL and EOMs intact bilaterally General Eye ED: Negative for other Neck full ROM and supple General: Negative for tenderness Lymph Lymphatic: Negative for other Chest Wall inspection of chest normal and palpation of chest normal Resp normal respiratory effort and clear to auscultation bilaterally Effort and Inspection: Negative for pain with movement Auscultation: Negative for rales, rhonchi, wheezes or diminished lung sounds Cardio regular rate, regular rhythm, S1 normal heart sound, S2 normal heart sound and no murmurs Rate: Negative for bradycardia Rhythm: Negative for abnormal rhythm GI non-tender, non-distended and no masses Inspection: Negative for abdominal distention Auscultation: normoactive bowel sounds Palpation: soft; Negative for tender Bladder / Kidney Exam: No other Back/Spine no CVA tenderness General Back: Negative for CVA tenderness Cervical Spine: Negative for cervical spine tenderness Thoracic Spine / Upper Back: Negative for thoracic spinal tenderness Lumbar Spine / Lower Back: Negative for lumbar spinal tenderness Extremity normal to inspection and full ROM Extremity Narrative: Needlestick palmar aspect right index finger mid phalanx. No swelling. No signs of infection. Full range of motion. Neurovascular intact. General Extremety ED: Negative for edema General Extremity: Negative for edema Neuro oriented x3, moves all extremities, no focal motor deficits and no sensory deficits noted Sensorium / Orientation: alert, oriented to person, oriented to place and oriented to time; Negative for orientation impaired, lethargic or stuporous Motor Exam: strength 5/5 throughout Psych mental status grossly normal Appearance: Negative for unkempt Attitude: No agitated Mood & Affect: Negative for depressed, anxious or tearful Skin Lesions: no lesions Rashes: no rashes Trauma: no lacerations or abrasions MDM MDM MDM Narrative Medical decision making narrative: 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 She be placed her needlestick protocol and follow-up with employee health. Discharge Plan Triage Chief Complaint: Occup Expose Other Complaint: REFERRED ED Provider: René Dupont Dx/Rx/DC Orders Clinical Impression: Needlestick injury accident Instructions: ED NEEDLE STICK Health Care Worker Prescriptions: No Action medroxyprogesterone 150 mg/mL suspension IM 84 Days Qty: 1 Label Comments: inject every THREE MONTHS Primary Care Provider: Rony Martinez Referrals: Rony Martinez MD [Primary Care Provider] - Health,Employee [Non-Staff -Ordering Privileges] - As soon as possible Activity Restrictions/Additional Instructions: Call and follow-up with [employer] health as soon as possible. Disposition Disposition: Home, Self Care
[2022-04-27 11:02] LABS: HIV - WCH Non-Reactive (Nonreactive); Hepatitis B Surface Antibody Reactive; Hepatitis B Surface Antigen Non-Reactive (Nonreactive); Hepatitis C Antibody Non-Reactive (Nonreactive)
== END 2022-04-27 10:08 | disposition home or self-care (01) ==
LOC: EDREF 09:07
PROVIDERS: PCP Family Medicine; Visit Provider Emergency Medicine
DX: S60.940A Unspecified superficial injury of right index finger, initial encounter (principal); W46.0XXA Contact with hypodermic needle, initial encounter; Y99.0 Civilian activity done for income or pay; Y92.239 Unspecified place in hospital as the place of occurrence of the external cause
CPT/HCPCS: 36415; 86703; 86706; 86803; 87340

== ENCOUNTER → 2022-05-24 | Outpatient (CLI) | payer OTHER, SELFPAY | END | disposition home or self-care (01) | LOC: LAB 07:49 | PROVIDERS: PCP Family Medicine; Visit Provider Nurse Practitioner Family | DX: Z00.00 Encounter for general adult medical examination without abnormal findings (principal); R53.83 Other fatigue | CPT/HCPCS: 84443 ==

== ENCOUNTER → 2024-03-07 | Outpatient (CLI) | payer OTHER, SELFPAY ==
[2024-03-10 22:07] LABS: Chlamydia By Nucleic Acid AMP Negative (Negative); Gonococcus By Nucleic Acid AMP Negative (Negative)
[2024-03-13 13:31] LABS: HPV Reflexed? NOT INDICATED
== END | disposition home or self-care (01) ==
PROVIDERS: Advanced Practice Midwife; PCP Family Medicine; Referring Provider Obstetrics & Gynecology; Visit Provider Obstetrics & Gynecology
DX: O09.90 Supervision of high risk pregnancy, unspecified, unspecified trimester (principal); Z3A.00 Weeks of gestation of pregnancy not specified
CPT/HCPCS: 87086; 87491; 87591; 88175; G0145

== ENCOUNTER → 2024-03-20 | Outpatient (CLI) | payer OTHER, SELFPAY ==
[2024-03-20 08:48] LABS: Absolute Lymphocyte Count 1.41 X10^3/uL (0.83-4.51); Absolute Neutrophil Count 5.5 X10^3/uL (2.0-7.7); Basophil# 0.03 X10^3/uL; Basophil% 0.4 % (0-1); Eosinophil# 0.06 X10^3/uL; Eosinophils% 0.8 % (0-5); Hematocrit 39.3 % (37-47); Hemoglobin 13.3 g/dL (12.0-15.0); Lymphocyte # 1.41 X10^3/ul (0.83-4.51); Mean Corp Hgb Conc 33.8 g/dL (32-36); Mean Corpuscular Hgb 27.6 pg (27.0-32.0); Mean Corpuscular Volume 81.5 fL (81-99); Mean Platelet Vol. 9.8 fl (6.2-12.0); Monocyte# 0.37 X10^3/uL; NRBC Flagged by Analyzer 0 % (0-5); Neutrophil # 5.54 X10^3/uL (2.7-7.7); Neutrophil % 74.5 % (47-70); Platelet Count 202 K/mm3 (150-450); RBC Distribution Width CV 12.5 % (11.6-14.6); Red Blood Count 4.82 M/mm3 (4.2-5.4); White Blood Count 7.4 K/mm3 (4.4-11.0)
[2024-03-20 14:21] LABS: HIV - WCH Non-Reactive (Nonreactive); Hepatitis B Surface Antigen Non-Reactive (Nonreactive); Hepatitis C Antibody Non-Reactive (Nonreactive); Rubella IgG Equiv (Nonreactive); Syphilis Antibodies Non-reactive
== END | disposition home or self-care (01) ==
LOC: LAB 08:27
PROVIDERS: PCP Family Medicine; Referring Provider Obstetrics & Gynecology; Visit Provider Obstetrics & Gynecology
DX: O09.90 Supervision of high risk pregnancy, unspecified, unspecified trimester (principal); Z3A.00 Weeks of gestation of pregnancy not specified
CPT/HCPCS: 36415; 85025; 86703; 86762; 86780; 86803; 86850; 86900; 86901; 87340

== ENCOUNTER → 2024-05-21 | Outpatient (CLI) | payer OTHER, SELFPAY ==
--- NOTE | 2024-05-21 12:29 | US_ITS ---
PROCEDURE: SECOND AND THIRD TRIMESTER OBSTETRICAL ULTRASOUND REASON FOR EXAM: Female, 28 years old. Evaluate anatomy LMP: 01/01/2024 TECHNIQUE: Transabdominal and Transvaginal PRIOR ULTRASOUND: None. FINDINGS: There is a single intrauterine fetus. The fetus is in a breech presentation. There is demonstrated cardiac activity with a heart rate of 147 bpm. There is a normal amniotic fluid volume. The largest amniotic fluid pocket measures 5.6 cm. The amniotic fluid index (YONI) is not measured. The placenta is anterior in location and is not low lying. Well-defined cystic area measuring about 4 x 1.8 x 0.8 cm adjacent to the cord insertion site likely presenting venous keller. There are Grade 0 placental changes. The cervix measures 3.7 cm in length. The bilateral adnexal regions are unremarkable. BIOMETRY: BPD: 4.9 cm: 20 weeks, 6 days HC: 17.5 cm: 20 weeks, 0 days OFD: 6 cm: 20 weeks, 3 days AC: 16.1 cm: 21 weeks, 2 days FL: 3.2 cm: 20 weeks, 1 days CI: 81.3% FL/BPD: 66% FL/HC: 18.5% FL/AC: 20.1% HC/AC: 1.09 age by current US: 20 weeks, 1 days. MINESH by current US: 10/07/2024. Estimated weight: 375 grams, +/- 56 grams, 78 %. Age by LMP: 20 weeks, 1 days. MINESH by LMP: 10/07/2024. ANATOMY: Cranium: Normal lateral ventricles measuring 6 mm. Normal choroid plexus. Normal cerebellum measuring 1.9 cm. Normal cisterna magna measuring 4 mm. Normal face, nose and lips. Chest: Normal 4-chamber heart. Abdomen/Pelvis: Normal diaphragm. Normal stomach. Normal abdominal wall. Normal cord insertion. Normal 3 vessel cord. Normal kidneys. Normal bladder. Spine: Normal cervical spine. Normal thoracic spine. Normal lumbar spine. Normal sacrum. Extremities: Normal bilateral upper extremities. Normal bilateral lower extremities. The fetus appears to be male. US/OB Anatomy Scan IMPRESSION: Single live intrauterine fetus in breech presentation with an estimated gestational age of 20 weeks and 1 day. Cystic area in the placenta adjacent to the cord insertion site likely presenting venous keller which can be further evaluated by follow-up exam. Electronically Signed: Raffi Schuler MD at 15:17 EDT ,
== END | disposition home or self-care (01) ==
LOC: US 12:29
PROVIDERS: PCP Family Medicine; Referring Provider Nurse Practitioner Women's Health; Visit Provider Nurse Practitioner Women's Health
DX: O09.90 Supervision of high risk pregnancy, unspecified, unspecified trimester (principal); Z3A.13 13 weeks gestation of pregnancy
CPT/HCPCS: 76805

== ENCOUNTER → 2024-06-11 | Outpatient (CLI) | payer OTHER, SELFPAY | END | disposition home or self-care (01) | LOC: LAB 09:09 | PROVIDERS: PCP Family Medicine; Referring Provider Nurse Practitioner Women's Health; Visit Provider Nurse Practitioner Women's Health | DX: Z20.828 Contact with and (suspected) exposure to other viral communicable diseases (principal) | CPT/HCPCS: 36415; 86787 ==

== ENCOUNTER → 2024-07-16 | Outpatient (CLI) | payer OTHER, SELFPAY ==
[2024-07-16 15:28] LABS: Absolute Lymphocyte Count 1.27 X10^3/uL (0.83-4.51); Absolute Neutrophil Count 7.9 X10^3/uL (2.0-7.7); Basophil# 0.02 X10^3/uL; Basophil% 0.2 % (0-1); Eosinophil# 0.11 X10^3/uL; Eosinophils% 1.1 % (0-5); Hematocrit 34.4 % (37-47); Hemoglobin 11.5 g/dL (12.0-15.0); Lymphocyte # 1.27 X10^3/ul (0.83-4.51); Lymphocyte % 12.9 % (19-41); Mean Corp Hgb Conc 33.4 g/dL (32-36); Mean Corpuscular Hgb 29.9 pg (27.0-32.0); Mean Corpuscular Volume 89.4 fL (81-99); Monocyte# 0.52 X10^3/uL; Monocyte% 5.3 % (0-10); NRBC Flagged by Analyzer 0 % (0-5); Neutrophil # 7.88 X10^3/uL (2.7-7.7); Neutrophil % 79.9 % (47-70); Platelet Count 211 K/mm3 (150-450); RBC Distribution Width CV 13.2 % (11.6-14.6); RBC Distribution Width SD 43.4 fl (35.1-43.9); Red Blood Count 3.85 M/mm3 (4.2-5.4); White Blood Count 9.9 K/mm3 (4.4-11.0)
[2024-07-16 15:38] LABS: Glucose Challenge Gest 1H 50g 117 mg/dL (70-140)
[2024-07-16 16:12] LABS: HIV - WCH Non-Reactive (Nonreactive); Syphilis Antibodies Non-reactive
== END | disposition home or self-care (01) ==
LOC: BWCLAB 14:13
PROVIDERS: PCP Family Medicine; Referring Provider Nurse Practitioner Women's Health; Visit Provider Nurse Practitioner Women's Health
DX: Z13.1 Encounter for screening for diabetes mellitus (principal)
CPT/HCPCS: 36415; 82950; 85025; 86703; 86780; 86850; 86900; 86901

== ENCOUNTER → 2024-09-10 | Outpatient (CLI) | payer OTHER, SELFPAY | END | disposition home or self-care (01) | PROVIDERS: Visit Provider Obstetrics & Gynecology | DX: O09.93 Supervision of high risk pregnancy, unspecified, third trimester (principal); Z3A.00 Weeks of gestation of pregnancy not specified | CPT/HCPCS: 87081 ==

== ENCOUNTER 2024-09-25 16:15 | Inpatient (IN) | payer OTHER, SELFPAY ==
[2024-09-25] VITALS (19 sets, daily range): BP systolic 118–161; BP diastolic 61–87; PULSE 69–98; RESP 14–16; TEMP 36.9–37.6; O2SAT 97–100; BMI 27.5
[2024-09-25 15:33] LABS: Hematocrit 33.5 % (37-47); Hemoglobin 10.9 g/dL (12.0-15.0); Mean Corp Hgb Conc 32.5 g/dL (32-36); Mean Corpuscular Hgb 27.5 pg (27.0-32.0); Mean Corpuscular Volume 84.4 fL (81-99); Mean Platelet Vol. 10.8 fl (6.2-12.0); Platelet Count 228 K/mm3 (150-450); RBC Distribution Width CV 13.2 % (11.6-14.6); RBC Distribution Width SD 40.4 fl (35.1-43.9); Red Blood Count 3.97 M/mm3 (4.2-5.4); White Blood Count 9.1 K/mm3 (4.4-11.0)
[2024-09-25 15:39] LABS: Protein, Urine (Random) 18.6 mg/dL (<11.9); Protein:Creat Ratio 325 mg/g CRE (0-200)
[2024-09-25 15:50] LABS: AST(SGOT) 18 U/L (15-37); Alanine Aminotransfer ALT/SGPT 13 U/L (13-56); Creatinine, Serum 0.76 mg/dL (0.55-1.02); EST Glomerular Filtration Rate 96 mL/min (>60); Est Glom Filt Rate - Afr Amer 117 mL/min (>60); Uric Acid 4.1 mg/dL (2.6-6.0)
[2024-09-25] MEDS: Lactated Ringers 1,000 ML 50 ML IV (17:27)
[2024-09-25] MEDS: Oxytocin 15 Units/NS 250ml 15 UNITS/250 ML IV.SOLN 2 UNITS IV (18:28)
[2024-09-25 18:30] LABS: Syphilis Antibodies Non-reactive
[2024-09-26] VITALS (81 sets, daily range): BP systolic 130–168; BP diastolic 70–98; PULSE 62–92; RESP 14–20; TEMP 36.5–37.4; O2SAT 88–100
[2024-09-26] MEDS: Lactated Ringers 1,000 ML 999 ML IV (00:52)
[2024-09-26] MEDS: fentaNYL-bupivacaine (epidural) 100 ML BAG EPIDURAL ×2 (01:45→06:14)
--- NOTE | 2024-09-26 02:42 | HP.PCM.OB_ITS ---
HPI - General General Date of Admission: 09/25/24 HPI Narrative CHANTEL PRICE, is a 29 F who presents with elevated bps no vb lof good fm no VASQUEZ BV Maternal Data Information MINESH Calculator Estimated Delivery Date Method Current WG Current Estimate 10/07/24 LMP (Certain) 38w 3d Other Estimates 10/13/24 Ultrasound #1 37w 4d PFSH PFSH Medical History Vocal cord dysfunction [place] injury accident Home Medications ?Medication ?Instructions ?Recorded ?Last Taken ?Type multivitamin no.47-iron fum 27 cap PO 09/24/24 History mg-folate no.1 1 mg-dha 300 mg capsule (PNV-DHA) Allergy/AdvReac Type Severity Reaction Status Date / Time No Known Allergies Allergy Verified 09/25/24 17:19 Family History no significant family his Surgical History [place] teeth extracted Social History adopted: No household members: spouse current occupational status: employed 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 occupational 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/hazards: Yes (Uses PPE) pets and animals: Yes pets and animals: dog(s) history of recent travel: No sexually active: Yes Smoking Status: Never smoker alcohol intake: never substance use type: does not use well-balanced diet: daily or most days caffeine: Yes Type: carbonated beverages Number of servings: 1 eating out: 1-3 times/week during the past year weight has: remained stable what type of physical activity do you participate in: none adrienne/restorationism: None seatbelt use: always do you feel safe at home: Yes additional social history: Torsten Price History 1 Elective abortions Hx Para 0 Spontaneous abortions Hx # Term Pregnancies Ectopic pregnancies Hx # Pregnancies Multiple births # of living children Visit Details Expected Delivery Route/Plan Labor Preferences- CB/BF classes: encouraged labor support person: Torsten labor intervention preferences: [] pain management options preferred: epidural cut cord/dad catch: maybe : yes PP control planned: discussed discussed possible routes of delivery and associated risks: [] special requests: [] Plans Covid status: [] Flu vaccine: given Tdap vaccine: given Rhogam: not needed. Baby Rh neg LARC form signed: yes Problem list reviewed and updated with the most current plan of care details and appropriate orders placed. Relevant counseling for the gestational age provided. Continue routine care and follow up unless otherwise noted in visit notes/problem list details OB Flowsheet Initial Weight: Not Recorded Date -?-?-?-?-?-?-?-?-?-?-?-?- EGA Weight BP Urine Prot -?-?-?-?-?-?-?-?-?-?-?-?- Glucose FHR FuHt Pres Dilation -?-?-?-?-?-?-?-?-?-?-?-?- Effaced St Visit Note 03/07/24 -?-?-?-?-?-?-?-?-?-?-?-?- 9w 3d 135 lb 122/76 -?-?-?-?-?-?-?-?-?-?-?-?- 180 -?-?-?-?-?-?-?-?-?-?-?-?- KW-CRL 20.5mm. m easuring 8.4 weeks NIPT today 04/09/24 -?-?-?-?-?-?-?-?-?-?-?-?- 14w 1d 134 lb 8 oz 112/72 Nega tive -?-?-?-?-?-?-?-?-?-?-?-?- Negative 160 -?-?-?-?-?-?-?-?-?-?-?-?- -Brief US to nicol poe FHT, live IUP. No Bleeding. Feels well 05/07/24 -?-?-?-?-?-?-?-?-?-?-?-?- 18w 1d 140 lb 112/76 Negative -?-?-?-?-?-?-?-?-?-?-?-?- Negative 160 -?-?-?-?-?-?-?-?-?-?-?-?- SM- no vb crampi ng doing well 06/06/24 -?-?-?-?-?-?-?-?-?-?-?-?- 22w 3d 152 lb 118/69 Negative -?-?-?-?-?-?-?-?-?-?-?-?- Negative 150 21 -?-?-?-?-?-?-?-?-?-?-?-?- KW- no vb/sammy mcfarlane fm. has follow up US on 06/10. 07/02/24 -?-?-?-?-?-?-?-?-?-?-?-?- 26w 1d 163 lb 8 oz 114/70 Nega tive -?-?-?-?-?-?-?-?-?-?-?-?- Negative 143 26 -?-?-?-?-?-?-?-?-?-?-?-?- -NO LOF. Armand VILLALTA. Larc 07/16/24 -?-?-?-?-?-?-?-?-?-?-?-?- 28w 1d 169 lb 127/82 Negative -?-?-?-?-?-?-?-?-?-?-?-?- Negative 140 28 -?-?-?-?-?-?-?-?-?-?-?-?- JV- baby has rh neg blood type, does not need rhogam. got tdap and 28 week l abs today (pending) no complaints 08/01/24 -?-?-?-?-?-?-?-?-?-?-?-?- 30w 3d 170 lb 9.6 oz 107/61 Ne gative -?-?-?-?-?-?-?-?-?-?-?-?- Negative 142 30 -?-?-?-?-?-?-?-?-?-?-?-?- MH-No LOF. Armand VILLALTA. Denies concerns 08/14/24 -?-?-?-?-?-?-?-?-?-?-?-?- 32w 2d 174 lb 8 oz 112/68 Nega tive -?--?-?-?-?-?-?-?-?-?-?-?- Negative 136 31 -?-?-?-?-?-?-?-?-?-?-?-?- MH-N VB, LOF. Go od FM. Reviewed MFM US w/adequate growth, venous keller resolved. 08/27/24 -?-?-?-?-?-?-?-?-?-?-?-?- 34w 1d 180 lb 4 oz 117/81 Nega tive -?-?-?-?-?-?-?-?-?-?-?-?- Negative 120 32 -?-?-?-?-?-?-?-?-?-?-?-?- KW- no vb/lof/ct x. good fm. 09/10/24 -?-?-?-?-?-?-?-?-?-?-?-?- 36w 1d 183 lb 4 oz 132/82 Nega tive -?-?-?-?-?-?-?-?-?-?-?-?- Negative 120 36 Cephalic 1 .5 -?-?-?-?-?-?-?-?-?-?-?-?- 60 -1 SM- no vb lof good fm or neuglar ctx gbs done 09/18/24 -?-?-?-?-?-?-?-?-?-?-?-?- 37w 2d 188 lb 6 oz 131/84 Nega tive -?-?-?-?-?-?-?-?-?-?-?-?- Negative 127 37 Cephalic 2 .5 -?-?-?-?-?-?-?-?-?-?-?-?- 80 -1 JV- no com plaints, labor precautions discussed. 09/25/24 -?-?-?-?-?-?-?-?-?-?-?-?- 38w 2d 192 lb 8 oz 145/90 153/90 Trace -?-?-?-?-?-?-?-?-?-?-?-?- Negative 125 39 Cephalic 3 -?-?-?-?-?-?-?-?-?-?-?-?- 80 -1 SM- no vb lof good fm no regular ctx SM- no vb lof good fm no reg ular ctx no elevated bps prior but today it is, no VASQUEZ BV to l and d for eval NST FHR Rate Baby A Baseline: 140 Variability:: Moderate Accelerations:: 15 x 15 Decelerations:: None NST Reactive:: Yes FHR Category:: Category I Uterine Activity:: q3-5 ROS Constitutional Constitutional: Reports systems reviewed and no addt'l complaints, except as documented Eyes Eyes: Denies change in vision ENT HEENT: Reports systems reviewed and no addt'l complaints, except as documented Cardiovascular Cardiovascular: Reports systems reviewed and no addt'l complaints, except as documented Respiratory/Chest Respiratory/Chest: Reports systems reviewed and no addt'l complaints, except as documented Gastrointestinal Gastrointestinal: Reports systems reviewed and no addt'l complaints, except as documented and nausea; Denies abdominal pain Genitourinary Genitourinary: Reports systems reviewed and no addt'l complaints, except as documented, contractions Details: present and frequency (regular ) and movement Details: present Musculoskeletal Musculoskeletal: Reports systems reviewed and no addt'l complaints, except as documented Integumentary Integumentary: Reports as per HPI Neurologic Neurologic: Reports systems reviewed and no addt'l complaints, except as documented Endocrine Endocrinology: Reports systems reviewed and no addt'l complaints, except as documented Vital Signs Vital Signs Vital Signs: 09/25/24 14:51 09/25/24 14:51 09/25/24 14:56 Temperature Temperature Source Pulse Rate 84 92 Respiratory Rate Blood Pressure BP Systolic BP Diastolic Pulse Ox 100 09/25/24 14:56 09/25/24 15:01 09/25/24 15:01 Temperature Temperature Source Pulse Rate 90 Respiratory Rate Blood Pressure BP Systolic BP Diastolic Pulse Ox 100 100 09/25/24 15:08 09/25/24 15:08 09/25/24 15:20 Temperature Temperature Source Pulse Rate 78 Respiratory Rate Blood Pressure 154/85 H 146/81 H BP Systolic 154 146 BP Diastolic 85 81 Pulse Ox 09/25/24 15:20 09/25/24 15:35 09/25/24 15:35 Temperature Temperature Source Pulse Rate 93 91 Respiratory Rate Blood Pressure 145/85 H BP Systolic 145 BP Diastolic 85 Pulse Ox 09/25/24 15:50 09/25/24 15:50 09/25/24 16:05 Temperature Temperature Source Pulse Rate 98 Respiratory Rate Blood Pressure 145/85 H 151/85 H BP Systolic 145 151 BP Diastolic 85 85 Pulse Ox 09/25/24 16:05 09/25/24 16:20 09/25/24 16:20 Temperature Temperature Source Pulse Rate 90 83 Respiratory Rate Blood Pressure 142/82 H BP Systolic 142 BP Diastolic 82 Pulse Ox 09/25/24 16:36 09/25/24 16:36 09/25/24 16:36 Temperature Temperature Source Tympanic Pulse Rate 96 Respiratory Rate Blood Pressure 161/87 H BP Systolic 161 BP Diastolic 87 Pulse Ox 09/25/24 16:36 09/25/24 16:36 09/25/24 16:50 Temperature 99.7 F H Temperature Source Pulse Rate Respiratory Rate Blood Pressure 141/81 H BP Systolic 141 BP Diastolic 81 Pulse Ox 100 09/25/24 16:50 09/25/24 18:32 09/25/24 18:32 Temperature Temperature Source Pulse Rate 85 71 Respiratory Rate Blood Pressure 136/85 H BP Systolic 136 BP Diastolic 85 Pulse Ox 09/25/24 18:32 09/25/24 18:32 09/25/24 18:32 Temperature 98.6 F Temperature Source Tympanic Pulse Rate Respiratory Rate 15 Blood Pressure BP Systolic BP Diastolic Pulse Ox 09/25/24 19:15 09/25/24 19:15 09/25/24 19:15 Temperature Temperature Source Pulse Rate 79 Respiratory Rate Blood Pressure 143/85 H BP Systolic 143 BP Diastolic 85 Pulse Ox 98 09/25/24 19:15 09/25/24 19:15 09/25/24 19:15 Temperature 98.4 F Temperature Source Temporal Pulse Rate Respiratory Rate 14 Blood Pressure BP Systolic BP Diastolic Pulse Ox 09/25/24 20:11 09/25/24 20:11 09/25/24 20:12 Temperature Temperature Source Pulse Rate 69 73 Respiratory Rate Blood Pressure 142/86 H BP Systolic 142 BP Diastolic 86 Pulse Ox 09/25/24 20:12 09/25/24 20:12 09/25/24 20:12 Temperature Temperature Source Temporal Pulse Rate Respiratory Rate 14 Blood Pressure BP Systolic BP Diastolic Pulse Ox 98 09/25/24 20:12 09/25/24 21:17 09/25/24 21:17 Temperature 99.5 F H Temperature Source Temporal Pulse Rate 80 Respiratory Rate Blood Pressure BP Systolic BP Diastolic Pulse Ox 09/25/24 21:17 09/25/24 21:17 09/25/24 21:17 Temperature 99.0 F Temperature Source Pulse Rate Respiratory Rate 14 Blood Pressure BP Systolic BP Diastolic Pulse Ox 97 09/25/24 21:18 09/25/24 21:18 09/25/24 22:00 Temperature Temperature Source Pulse Rate 77 Respiratory Rate Blood Pressure 118/61 144/79 H BP Systolic 118 144 BP Diastolic 61 79 Pulse Ox 09/25/24 22:00 09/25/24 22:00 09/25/24 22:00 Temperature Temperature Source Temporal Pulse Rate 72 Respiratory Rate Blood Pressure BP Systolic BP Diastolic Pulse Ox 98 09/25/24 22:00 09/25/24 22:00 09/25/24 23:04 Temperature 98.4 F Temperature Source Temporal Pulse Rate Respiratory Rate 14 Blood Pressure BP Systolic BP Diastolic Pulse Ox 09/25/24 23:04 09/25/24 23:04 09/25/24 23:04 Temperature Temperature Source Pulse Rate 70 Respiratory Rate 16 Blood Pressure 137/84 H BP Systolic 137 BP Diastolic 84 Pulse Ox 09/25/24 23:04 09/26/24 00:00 09/26/24 00:00 Temperature 99.2 F H Temperature Source Pulse Rate 84 Respiratory Rate Blood Pressure 132/75 H BP Systolic 132 BP Diastolic 75 Pulse Ox 09/26/24 00:00 09/26/24 00:00 09/26/24 00:00 Temperature Temperature Source Temporal Pulse Rate Respiratory Rate 14 Blood Pressure BP Systolic BP Diastolic Pulse Ox 97 09/26/24 00:00 09/26/24 01:19 09/26/24 01:19 Temperature 99.0 F Temperature Source Temporal Pulse Rate 69 Respiratory Rate Blood Pressure BP Systolic BP Diastolic Pulse Ox 09/26/24 01:19 09/26/24 01:19 09/26/24 01:19 Temperature 98.5 F Temperature Source Pulse Rate Respiratory Rate 14 Blood Pressure BP Systolic BP Diastolic Pulse Ox 100 09/26/24 01:20 09/26/24 01:20 09/26/24 01:29 Temperature Temperature Source Pulse Rate 67 78 Respiratory Rate Blood Pressure 135/86 H BP Systolic 135 BP Diastolic 86 Pulse Ox 09/26/24 01:29 09/26/24 01:30 09/26/24 01:30 Temperature Temperature Source Pulse Rate 78 Respiratory Rate Blood Pressure 166/98 H BP Systolic 166 BP Diastolic 98 Pulse Ox 100 09/26/24 01:30 09/26/24 01:34 09/26/24 01:34 Temperature Temperature Source Pulse Rate 71 Respiratory Rate 16 Blood Pressure BP Systolic BP Diastolic Pulse Ox 100 09/26/24 01:35 09/26/24 01:35 09/26/24 01:35 Temperature Temperature Source Pulse Rate 68 Respiratory Rate 16 Blood Pressure 154/95 H BP Systolic 154 BP Diastolic 95 Pulse Ox 09/26/24 01:39 09/26/24 01:39 09/26/24 01:40 Temperature Temperature Source Pulse Rate 81 Respiratory Rate Blood Pressure 138/89 H BP Systolic 138 BP Diastolic 89 Pulse Ox 100 09/26/24 01:40 09/26/24 01:40 09/26/24 01:40 Temperature Temperature Source Pulse Rate 77 84 Respiratory Rate Blood Pressure 145/92 H BP Systolic 145 BP Diastolic 92 Pulse Ox 09/26/24 01:40 09/26/24 01:44 09/26/24 01:44 Temperature Temperature Source Pulse Rate 73 Respiratory Rate 16 Blood Pressure BP Systolic BP Diastolic Pulse Ox 100 09/26/24 01:45 09/26/24 01:45 09/26/24 01:45 Temperature Temperature Source Pulse Rate 71 Respiratory Rate 16 Blood Pressure 141/84 H BP Systolic 141 BP Diastolic 84 Pulse Ox 09/26/24 01:49 09/26/24 01:49 09/26/24 01:50 Temperature Temperature Source Pulse Rate 71 Respiratory Rate Blood Pressure 153/88 H BP Systolic 153 BP Diastolic 88 Pulse Ox 100 09/26/24 01:50 09/26/24 01:50 09/26/24 01:51 Temperature Temperature Source Pulse Rate 70 Respiratory Rate 16 Blood Pressure 136/87 H BP Systolic 136 BP Diastolic 87 Pulse Ox 09/26/24 01:51 09/26/24 01:51 09/26/24 01:54 Temperature Temperature Source Pulse Rate 68 67 Respiratory Rate 16 Blood Pressure BP Systolic BP Diastolic Pulse Ox 09/26/24 01:54 09/26/24 01:55 09/26/24 01:55 Temperature Temperature Source Pulse Rate 71 Respiratory Rate Blood Pressure 148/88 H BP Systolic 148 BP Diastolic 88 Pulse Ox 100 09/26/24 01:59 09/26/24 01:59 09/26/24 02:01 Temperature Temperature Source Pulse Rate 76 Respiratory Rate Blood Pressure 168/93 H BP Systolic 168 BP Diastolic 93 Pulse Ox 100 09/26/24 02:01 09/26/24 02:01 09/26/24 02:04 Temperature Temperature Source Pulse Rate 71 62 Respiratory Rate 16 Blood Pressure BP Systolic BP Diastolic Pulse Ox 09/26/24 02:04 09/26/24 02:06 09/26/24 02:06 Temperature Temperature Source Pulse Rate 64 Respiratory Rate Blood Pressure 154/90 H BP Systolic 154 BP Diastolic 90 Pulse Ox 100 09/26/24 02:06 09/26/24 02:06 09/26/24 02:06 Temperature 98.7 F Temperature Source Temporal Pulse Rate Respiratory Rate 14 Blood Pressure BP Systolic BP Diastolic Pulse Ox 09/26/24 02:40 09/26/24 02:40 09/26/24 02:40 Temperature Temperature Source Temporal Pulse Rate 66 Respiratory Rate Blood Pressure 139/85 H BP Systolic 139 BP Diastolic 85 Pulse Ox 09/26/24 02:40 09/26/24 02:40 Temperature 98.4 F Temperature Source Pulse Rate Respiratory Rate 14 Blood Pressure BP Systolic BP Diastolic Pulse Ox Weight Weight: 192 lb Body Mass Index (BMI) 27.5 Physical Exam Const alert, oriented x3 and healthy appearing Constitutional Narrative: uncomfortable with contractions HEENT normocephalic and moist oral mucous membranes Head and Scalp: atraumatic Neck full ROM, no lymphadenopathy, supple and thyroid normal General: trachea midline Thyroid: thyroid normal Lymph Lymphatic: no lymphadenopathy noted Chest inspection of chest normal Resp normal respiratory effort Cardio regular rate GI soft to palpation and non-tender GI Narrative: gravid Inspection: gravid external exam normal Bimanual Exam - Vag & Uterus: uterus non-tender Manual OB Exam: estimated gestational size appropriate, presentation cephalic, dilated, effaced and station Extremity normal to inspection General Extremity: Negative for edema Skin no rashes or lesions noted Neuro deep tendon reflexes 2+ bilaterally Motor Exam: strength 5/5 throughout and clonus absent Psych mental status grossly normal Labs Labs Labs: Blood Type B NEGATIVE Antibody Screen NEGATIVE Hct 33.5 % (37-47) L Hgb 10.9 g/dL (12.0-15.0) L Obstetrics Ultrasound Syphilis Total Ab Non-reactive VZV IgG Antibody Rubella IgG Antibody Equiv (Nonreactive) Hep Bs Antigen Non-Reactive (Nonreactive) Hepatitis C Antibody Non-Reactive (Nonreactive) Chlamydia DNA (BA[place]ISTA) Negative (Negative) N.gonorrhoeae DNA ([place]A) Negative (Negative) HIV 1&2 Antibody Non-Reactive (Nonreactive) Glucose 1 Hr 50 gm 117 mg/dL (70-140) Assessment & Plan (1) Rh negative state in antepartum period: COMMENT: Baby is Rh negative. rhogam is not needed (2) Rubella non-immune status, antepartum: COMMENT: result is equivocal. needs vaccinated (3) Supervision of high-risk : QUALIFIERS: Trimester: third trimester Qualified Code(s): O09.93 - Supervision of high risk , unspecified, third trimester COMMENT: PRR, , MINESH 10/07/24, boy Torsten (4) : QUALIFIERS: Weeks of gestation: 38 weeks Qualified Code(s): Z3A.38 - 38 weeks gestation of COMMENT: GBS neg, NIPT low risk. carrier and ntd screen declined. (5) Pre-eclampsia affecting puerperium: PLAN: Plan Patient presents IOL, plan management for with pitocin/AROM. Pain management: plans epidural. GBS negative. Management of any complications: monitor bps I have reviewed the [facility] and made any clinically relevant updates.
--- NOTE | 2024-09-26 02:46 | PCM.PN.BLA ---
Progress Note arom clear fluid 4 cm epidural cat I tracing continue pit per protocol
[2024-09-26] MEDS: Lactated Ringers 1,000 ML 200 ML IV (06:02)
--- NOTE | 2024-09-26 08:29 | PCM.PN.BLA ---
Progress Note comfortable with epidural current tracing: FHT: 115 Moderate variability reactive no decelerations category I tracing [place]: 2-3 minute Contractions Membranes:remains clear SVE:complete and pushing A/P: Continue with position changes Titrate pitocin per protocol Epidural per anesthesia GBS neg Anticipate Dr Betancourt aware of above assessment and agrees with plan of care Assessment & Plan Assessment/Plan (1) Pre-eclampsia affecting puerperium: (2) Venous keller: (3) Rh negative state in antepartum period: (4) Rubella non-immune status, antepartum: (5) Supervision of high-risk : QUALIFIERS: Trimester: third trimester Qualified Code(s): O09.93 - Supervision of high risk , unspecified, third trimester (6) : QUALIFIERS: Weeks of gestation: 38 weeks Qualified Code(s): Z3A.38 - 38 weeks gestation of Multi Select Codes Urinary/Genital Urinary/Genital CPT Codes: No Charge
[2024-09-26] MEDS: Ondansetron 4 MG/2 ML Vial IV (08:53)
[2024-09-26] MEDS: 0.9% Saline Lock 10 ML Syringe IV ×2 (08:54→14:21)
[2024-09-26] MEDS: Oxytocin 15 Units/NS 250ml 15 UNITS/250 ML IV.SOLN 334 UNITS IV (10:25)
[2024-09-26] MEDS: miSOPROStol 200 MCG Tablet 1000 MCG RC (10:26)
--- NOTE | 2024-09-26 11:08 | OB.VAGDELI_ITS ---
Assessment & Plan (1) Vaginal delivery: COMMENT: KW IOL pre e boy (2) Pre-eclampsia affecting puerperium: (3) Venous keller: COMMENT: MFM cleared. return to [facility] at 32 weeks for reevaluation 08/12/24/nl growth. Resolved (4) Rh negative state in antepartum period: COMMENT: Baby is Rh negative. rhogam is not needed (5) Rubella non-immune status, antepartum: COMMENT: result is equivocal. needs vaccinated (6) Supervision of high-risk : QUALIFIERS: Trimester: third trimester Qualified Code(s): O09.93 - Supervision of high risk , unspecified, third trimester COMMENT: PRR, , MINESH 10/07/24, boy Torsten (7) : QUALIFIERS: Weeks of gestation: 38 weeks Qualified Code(s): Z3A.38 - 38 weeks gestation of COMMENT: GBS neg, NIPT low risk. carrier and ntd screen declined. Maternal Data Information MINESH Calculator Estimated Delivery Date Method Current WG Current Estimate 10/07/24 LMP (Certain) 38w 3d Other Estimates 10/13/24 Ultrasound #1 37w 4d Final MINESH: 10/07/24 Final MINESH Source: US >20 weeks Gestational age: 38.3 week Vaginal Delivery Maternal Presentation Maternal Presentation: Medically Indicated Induction Maternal Presentation: Presented to unit for induction of labor for pre eclampsia Type of Induction: Pitocin Medical Reason for Induction: Preeclampsia, eclampsia Vaginal Delivery Information Procedure Performed: Spontaneous Vaginal Delivery Surgeon/Practitioner: Gaby Corrigan Date of Procedure: 09/26/24 Pre-Procedure Diagnosis: see problem list Post-Procedure Diagnosis: same Type of anesthesia: Epidural Estimated Blood Loss: 400 Time of Delivery: 10:10 Findings Description of procedure: Progressed well to 10cm dilated and made steady progress with effective maternal pushing. After 3 hours of pushing, patient requested assistance with small episiotomy to expedite delivery. Delivered the head in RASHAWN presentation. The head was delivered atraumatically and no nuchal cord was identified. The anterior and posterior shoulders delivered without complication followed by the rest of the and the was placed on the maternal abdomen. Delayed cord clamping was employed for approximately 3 minutes. Cord was clamped and cut and gentle traction was applied to the cord and the placenta delivered spontaneously. Immediately following, it was noted to be intact with a 3 vessel cord. Brisk uterine bleeding noted but uterus firm. Suspected from large infant. Cytotec given due previous elevate BP. bleeding stabilized. The perineum and vagina were inspected and noted to have a first degree episiotomy which was repaired with 3-0 Vicryl in the usual fashion. EBL was 400cc. Patient and tolerated delivery well. Apgars 8/8. Dr Betancourt notified of vaginal delivery and orders reviewed. Physician agrees with current plan of care. Presentation: Vertex Amniotic Fluid Description: Clear Placental Delivery Description: Spontaneous Placenta Disposition: [facility] Specimen collected: No Cord Vessel Description: 3 Vessels Cord Entanglement: None A Gender: Male (1 minute): 8 (5 minute): 8 Delayed Cord Clamping: Yes Claims Configuration Analyst conversion developer: No Post Vaginal Deli Medications given after delivery: IV Pitocin and Other (cytotec) Episiotomy Description: 1st degree Laceration: None Complication Complications: No Multi Select Codes Urinary/Genital Urinary/Genital CPT Codes: 68178 Vaginal Delivery [facility]
[2024-09-26] MEDS: Oxytocin 15 Units/NS 250ml 15 UNITS/250 ML IV.SOLN 83 UNITS IV (11:15)
--- NOTE | 2024-09-26 11:18 | DCINST_ITS ---
Discharge Instructions Diet Discharge Diet: No restrictions DC O2, CPAP, BIPAP needs Home O2 Discharge instructions: No Dressing / Incision Discharge Activity: Return to Normal Activity May resume sexual activity in: 6-8 weeks Dressing / Incision Call your doctor if you observe: Fever of 101 or Higher, Coldness, Increased Pain, Numbness or Tingling, Change in Color, Inability to urinate, Inability to have a bowel movement, Using more than 1 pad per hour, Shortness of breath, Dizziness, Fainting spells, Swelling in the ankles, Chest pain, Increased p alpitations (irregular heartbeat), Calf discomfort and Uncontrolled pain Follow Up Care Please Follow Up With: Gaby Corrigan CNM When: Please call the office to schedule your follow up appointment in 6 weeks. If you had high blood pressure please call to schedule an appointment in 2 weeks. Test Results: Test results from this visit will be discussed in further detail at your follow- up appointment, if applicable. Discharge Plan Admission Admit Date/Time: 09/25/24 16:15 Attending Provider: Gaby Corrigan Primary Care Provider: Care Physician,Ashlie Primary Discharge Orders/Prescriptions Prescriptions: No Action PNV-DHA 27 mg iron-1 mg -300 mg capsule PO Referrals / Follow Up: Care Physician,No Primary [Primary Care Provider] -
--- NOTE | 2024-09-26 13:31 | NURSING ---
Cumulative emesis during second stage.
[2024-09-26] MEDS: Ibuprofen 600 MG Tablet PO (17:07)
[2024-09-27] VITALS (11 sets, daily range): BP systolic 110–151; BP diastolic 72–103; PULSE 63–81; RESP 16; TEMP 36.5–36.7; O2SAT 99–100
[2024-09-27] MEDS: Ibuprofen 600 MG Tablet PO ×2 (00:27→10:50)
[2024-09-27 06:05] LABS: Absolute Lymphocyte Count 1.51 X10^3/uL (0.83-4.51); Absolute Neutrophil Count 9.3 X10^3/uL (2.0-7.7); Basophil# 0.03 X10^3/uL; Basophil% 0.3 % (0-1); Eosinophil# 0.06 X10^3/uL; Eosinophils% 0.5 % (0-5); Hematocrit 29.7 % (37-47); Hemoglobin 10.1 g/dL (12.0-15.0); Lymphocyte # 1.51 X10^3/ul (0.83-4.51); Lymphocyte % 12.8 % (19-41); Mean Corpuscular Hgb 28.5 pg (27.0-32.0); Mean Corpuscular Volume 83.9 fL (81-99); Mean Platelet Vol. 11.1 fl (6.2-12.0); Monocyte# 0.83 X10^3/uL; NRBC Flagged by Analyzer 0 % (0-5); Neutrophil # 9.32 X10^3/uL (2.7-7.7); Neutrophil % 78.9 % (47-70); Platelet Count 181 K/mm3 (150-450); RBC Distribution Width CV 13.3 % (11.6-14.6); RBC Distribution Width SD 40.5 fl (35.1-43.9); Red Blood Count 3.54 M/mm3 (4.2-5.4); White Blood Count 11.8 K/mm3 (4.4-11.0)
--- NOTE | 2024-09-27 08:56 | PCM.PN.OB ---
Subjective Subjective Patient doing well without complaints. Tolerating PO. Ambulating and voiding without difficulty. Feeding well. Denies chest pain, shortness of breath, calf pain/swelling, fevers, chills, lightheadedness. Infant in SCN for blood sugars Objective Data Objective Data Vital Signs: Vital Signs Temp Pulse Resp BP Pulse Ox O2 Del Method 98.1 F 63 16 140/96 H 100 Room Air 09/27/24 08:50 09/27/24 08:50 09/27/24 08:50 09/27/24 08:50 09/27/24 08:50 09/27/24 08:50 Oxygen Delivery Method Room Air Weight: 192 lb Body Mass Index (BMI) 27.5 Intake & Output: Intake and Output for Last 24 Hours 09/25/24 09/26/24 09/27/24 23:59 23:59 23:59 Intake Total 28.69 / 28.69 3666.93 / 3666.93 Output Total 2850 / 2850 Balance 28.69 / 28.69 816.93 / 816.93 Lab / Micro Data Attestation: I reviewed the patient's lab results. 09/27/24 05:35 09/25/24 15:00 Labs: Laboratory Results - last 24 hr 09/27/24 05:35: WBC 11.8 H, RBC 3.54 L, Hgb 10.1 L, Hct 29.7 L, MCV 83.9, MCH 28.5, MCHC 34.0, RDW Std Deviation 40.5, RDW Coeff of Hiren 13.3, Plt Count 181, MPV 11.1, Immature Gran % (Auto) 0.500, Neut % (Auto) 78.9 H, Lymph % (Auto) 12.8 L, [place] % (Auto) 7.0, Eos % (Auto) 0.5, Baso % (Auto) 0.3, Absolute Neuts (auto) 9.3 H, Absolute Lymphs (auto) 1.51, Nucleated RBC % 0 ROS Constitutional Constitutional: Reports systems reviewed and no addt'l complaints, except as documented; Denies anorexia or headache(s) Cardiovascular Cardiovascular: Reports systems reviewed and no addt'l complaints, except as documented; Denies dizziness, dyspnea, nausea or tachypnea Respiratory/Chest Respiratory/Chest: Reports systems reviewed and no addt'l complaints, except as documented; Denies cough, dyspnea, shortness of breath at rest or tachypnea Gastrointestinal Gastrointestinal: Reports systems reviewed and no addt'l complaints, except as documented; Denies abdominal pain, constipation or nausea Genitourinary Genitourinary: Reports systems reviewed and no addt'l complaints, except as documented; Denies burning urination, difficulty urinating, dysuria, urinary frequency or urinary incontinence Musculoskeletal Musculoskeletal: Reports systems reviewed and no addt'l complaints, except as documented Integumentary Integumentary: Reports systems reviewed and no addt'l complaints, except as documented Neurologic Neurologic: Reports systems reviewed and no addt'l complaints, except as documented; Denies abnormal speech, dizziness or headache(s) Psychiatric Psychiatric: Reports systems reviewed and no addt'l complaints, except as documented Endocrine Endocrinology: Reports systems reviewed and no addt'l complaints, except as documented Hematologic/Lymphatic Hematologic/Lymphatic: Reports systems reviewed and no addt'l complaints, except as documented Physical Exam Const alert, oriented x3 and no apparent distress Neck full ROM Resp normal respiratory effort, normal air movement and no retractions Effort and Inspection: able to speak in complete sentences and symmetric chest movement GI soft to palpation Bladder / Kidney Exam: bladder normal to palpation Uterus Palpation: uterus fundus firm Extremity normal to inspection and full ROM Psych mental status grossly normal, thought process normal and cooperative Assessment & Plan (1) Vaginal delivery: COMMENT: KW IOL pre e boy PLAN: s/p PPD # 1 1. routine post delivery care 2. breast feeding- support given 3. rh positive 4. rubella immune (2) Pre-eclampsia affecting puerperium: (3) Exposure to virus: COMMENT: exposure to chicken pox during . Immune (4) Venous keller: COMMENT: MFM cleared. return to [facility] at 32 weeks for reevaluation 08/12/24/nl growth. Resolved (5) Rh negative state in antepartum period: COMMENT: Baby is Rh negative. rhogam is not needed (6) Rubella non-immune status, antepartum: COMMENT: result is equivocal. needs vaccinated (7) Supervision of high-risk : QUALIFIERS: Trimester: third trimester Qualified Code(s): O09.93 - Supervision of high risk , unspecified, third trimester COMMENT: PRR, , MINESH 10/07/24, boy Torsten (8) : QUALIFIERS: Weeks of gestation: 38 weeks Qualified Code(s): Z3A.38 - 38 weeks gestation of COMMENT: GBS neg, NIPT low risk. carrier and ntd screen declined. Charges/Coding Multi Select Codes Urinary/Genital Urinary/Genital CPT Codes: No Charge
[2024-09-27] MEDS: MEASLES,MUMPS,RUBELLA VACC/PF 0.5 ML SC (12:22)
--- NOTE | 2024-09-27 14:25 | CASEMGMT ---
Social Work Assessment Labor and Delivery Unit Patient Address: [address] [place] [address]. [place] [address] Phone number: Date of Referral: 09/26/2024 Time of Referral: 22:14 Referred By: Gaby Corrigan Date of Intervention: 09/27/2024 Time of Intervention: 14:25 Reason for Referral: Anxiety History obtained from: Medical records and mother of baby (MOB). ? Household composition: MOB, father of baby (FOB; Torsten) and their son Fernando, born on 09/26/2024. Patient's parent/guardian status:? MOB and FOB are and MOB reported a positive relationship and denied any previous or current DV. MOB reported she feels safe at home. Neither the MOB nor the FOB have any other children. Medical History: : 1, Para, now 1. KIEL received PNC through [facility] beginning at 9 weeks and 3 days. Visits were observed to be routine. Apgars: 8 and 8. Weight: 8lbs, 11oz. Laboratory Chemical Assistant: Dr. Hickey. Educational Status: MOB denied any issues or concerns with reading or writing. MOB reported both she and the FOB are High School graduates. Financial Status: MOB reported the household income is sufficient to meet the needs of her family at this time. 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 KIEL is taking a 12 week maternity leave and the FOB is able to take off whenever he wants to. Supplies: KILE reported she has all of the supplies she needs for baby at this time including but not limited to: Car Seat, bassinet, crib, pack-n-play, diapers, bottles, breast pump and clothing. Childcare/Caregiver(s):? MOB and FOB will both provide care to and during the times the MOB and FOB are at work, either ?s maternal grandparents (MGP?s), paternal grandparents (PGP?s), or ?s maternal aunt will be providing childcare. Transportation:? MOB reported she and the FOB are both licensed drivers with reliable vehicles to take baby to and from all medical appointments. No transportation issues identified. Programs/Agencies Involved: MOB denied any current programs or agencies involved at this time. ??? Children Services/Legal Issues:? Denied. Behavioral Health Issues: ??Mental Health History:? MOB denied any mental health either with herself or the FOB. Referral for consult indicated the MOB has anxiety with the MOB however MOB denied. Substance Use History: Denied. ??Family History: Denied. ?Drug Screens: None obtained. Family/Social Stressors:? Denied Support Systems: Ample.? MOB described her biggest supports as the FOB, her parents, the FOB?s parents, her sister and her [id number] (DAREN). Depression/Shaken Baby/Safe Sleeping: body worker provided verbal and written education on PPD, Safe Sleeping and Shaken Baby.? MOB verbalized an understanding. ??? ASSESSMENT:? MOB provided consent to social work visit. MOB reported the FOB had just recently left to go home and shower and check on the dogs. MOB was very verbally engaged and cooperative and talked about how was going and how is doing in the nursery. MOB denied any concerns/needs at this time. Safe Plan of Care for related to substance use: N/A; not needed. ? PLAN:? Baby to be discharged home.? body worker also provided written information on depression, depression resources and Help Me Grow. ?No other services requested or indicated. Marsha Sevilla, BEAN [employer]OUT GROWER, PACKAGING MATERIALS INSPECTOR
[2024-09-27] MEDS: NIFEdipine 30 MG Tablet PO (18:51)
[2024-09-28] VITALS (7 sets, daily range): BP systolic 136–157; BP diastolic 75–96; PULSE 65–82; RESP 16–18; TEMP 36.4–36.8; O2SAT 98–100
[2024-09-28] MEDS: Ibuprofen 600 MG Tablet PO ×2 (01:34→20:24)
--- NOTE | 2024-09-28 09:52 | NURSING ---
0945-noted fine raised rash to lt forearm, pt states wasnt raised before. rash color of pt skin. half dime size light pink rash to rt inner forearm.
--- NOTE | 2024-09-28 12:47 | PN.OBGYN_ITS ---
Subjective Subjective Patient doing well without complaints. Tolerating PO. Ambulating and voiding without difficulty. Feeding well. Denies chest pain, shortness of breath, calf pain/swelling, fevers, chills, lightheadedness. reports small rash on right forearm, likely from environmental allergens. Started procardia XL 30 yesterday for increasing bps-will continue to monitor overnight and possible discharge tomorrow. in SCN for blood sugars Objective Data Objective Data Vital Signs: Vital Signs Temp Pulse Resp BP Pulse Ox O2 Del Method 97.5 F L 72 16 139/95 H 100 Room Air 09/28/24 09:45 09/28/24 09:45 09/28/24 09:45 09/28/24 09:45 09/28/24 09:45 09/28/24 09:45 Oxygen Delivery Method Room Air Weight: 192 lb Body Mass Index (BMI) 27.5 Intake & Output: Intake and Output for Last 24 Hours 09/26/24 09/27/24 09/28/24 23:59 23:59 23:59 Intake Total 3666.93 / 3666.93 Output Total 2850 / 2850 Balance 816.93 / 816.93 Lab / Micro Data Attestation: I reviewed the patient's lab results. 09/27/24 05:35 09/25/24 15:00 ROS Constitutional Constitutional: Reports systems reviewed and no addt'l complaints, except as documented; Denies anorexia or headache(s) Cardiovascular Cardiovascular: Reports systems reviewed and no addt'l complaints, except as documented; Denies dizziness, dyspnea, nausea or tachypnea Respiratory/Chest Respiratory/Chest: Reports systems reviewed and no addt'l complaints, except as documented; Denies cough, dyspnea, shortness of breath at rest or tachypnea Gastrointestinal Gastrointestinal: Reports systems reviewed and no addt'l complaints, except as documented; Denies abdominal pain, constipation or nausea Genitourinary Genitourinary: Reports systems reviewed and no addt'l complaints, except as documented; Denies burning urination, difficulty urinating, dysuria, urinary frequency or urinary incontinence Musculoskeletal Musculoskeletal: Reports systems reviewed and no addt'l complaints, except as documented Integumentary Integumentary: Reports systems reviewed and no addt'l complaints, except as documented Neurologic Neurologic: Reports systems reviewed and no addt'l complaints, except as documented; Denies abnormal speech, dizziness or headache(s) Psychiatric Psychiatric: Reports systems reviewed and no addt'l complaints, except as documented Endocrine Endocrinology: Reports systems reviewed and no addt'l complaints, except as documented Hematologic/Lymphatic Hematologic/Lymphatic: Reports systems reviewed and no addt'l complaints, except as documented Physical Exam Const alert, oriented x3 and no apparent distress Neck full ROM Resp normal respiratory effort, normal air movement and no retractions Effort and Inspection: able to speak in complete sentences and symmetric chest movement GI soft to palpation Bladder / Kidney Exam: bladder normal to palpation Uterus Palpation: uterus fundus firm Extremity normal to inspection and full ROM Psych mental status grossly normal, thought process normal and cooperative Assessment & Plan (1) Vaginal delivery: COMMENT: KW IOL pre e boy PLAN: s/p PPD # 2 1. routine post delivery care 2. breast feeding- support given 3. rh positive 4. rubella immune (2) Pre-eclampsia affecting puerperium: PLAN: Procardia XL 30 started yesterday for elevated BPs, BPs now stable Continue to monitor BPs while on procardia (3) Exposure to virus: COMMENT: exposure to chicken pox during . Immune (4) Venous keller: COMMENT: MFM cleared. return to MFM at 32 weeks for reevaluation 08/12/24/nl growth. Resolved (5) Rh negative state in antepartum period: COMMENT: Baby is Rh negative. rhogam is not needed (6) Rubella non-immune status, antepartum: COMMENT: result is equivocal. needs vaccinated (7) Supervision of high-risk : QUALIFIERS: Trimester: third trimester Qualified Code(s): O09.93 - Supervision of high risk , unspecified, third trimester COMMENT: PRR, , MINESH 10/07/24, boy Torsten (8) : QUALIFIERS: Weeks of gestation: 38 weeks Qualified Code(s): Z 3A.38 - 38 weeks gestation of COMMENT: GBS neg, NIPT low risk. carrier and ntd screen declined. Charges/Coding Multi Select Codes Urinary/Genital Urinary/Genital CPT Codes: No Charge
[2024-09-28] MEDS: NIFEdipine 60 MG Tablet PO (17:47)
[2024-09-28] MEDS: Labetalol 200 MG Tablet PO (21:04)
[2024-09-29] VITALS (7 sets, daily range): BP systolic 114–138; BP diastolic 70–90; PULSE 76–86; RESP 14–16; TEMP 36.7–37.2; O2SAT 98–100
[2024-09-29] MEDS: Labetalol 200 MG Tablet PO ×3 (06:06→22:00)
[2024-09-29] MEDS: NIFEdipine 60 MG Tablet PO (11:10)
--- NOTE | 2024-09-29 12:22 | PCM.PN.OB ---
Subjective Subjective Patient doing well without complaints. Tolerating PO. Ambulating and voiding without difficulty. Feeding well. Denies chest pain, shortness of breath, calf pain/swelling, fevers, chills, lightheadedness. Blood pressures were still elevated after 30mg of procardia-procardia 60mg started yesterday am and helped slightly. Labetalol 200 started last night and bps are better today. Plan for D/C tonight if BPs remain stable and will continue medications at home. BP check in one week in the office Objective Data Objective Data Vital Signs: Vital Signs Temp Pulse Resp BP Pulse Ox O2 Del Method 98.9 F 86 16 114/70 99 Room Air 09/29/24 09:37 09/29/24 09:37 09/29/24 09:37 09/29/24 09:37 09/29/24 09:37 09/29/24 09:37 Oxygen Delivery Method Room Air Weight: 192 lb Body Mass Index (BMI) 27.5 Lab / Micro Data 09/27/24 05:35 09/25/24 15:00 ROS Constitutional Constitutional: Reports systems reviewed and no addt'l complaints, except as documented; Denies anorexia or headache(s) Cardiovascular Cardiovascular: Reports systems reviewed and no addt'l complaints, except as documented; Denies dizziness, dyspnea, nausea or tachypnea Respiratory/Chest Respiratory/Chest: Reports systems reviewed and no addt'l complaints, except as documented; Denies cough, dyspnea, shortness of breath at rest or tachypnea Gastrointestinal Gastrointestinal: Reports systems reviewed and no addt'l complaints, except as documented; Denies abdominal pain, constipation or nausea Genitourinary Genitourinary: Reports systems reviewed and no addt'l complaints, except as documented; Denies burning urination, difficulty urinating, dysuria, urinary frequency or urinary incontinence Musculoskeletal Musculoskeletal: Reports systems reviewed and no addt'l complaints, except as documented Integumentary Integumentary: Reports systems reviewed and no addt'l complaints, except as documented Neurologic Neurologic: Reports systems reviewed and no addt'l complaints, except as documented; Denies abnormal speech, dizziness or headache(s) Psychiatric Psychiatric: Reports systems reviewed and no addt'l complaints, except as documented Endocrine Endocrinology: Reports systems reviewed and no addt'l complaints, except as documented Hematologic/Lymphatic Hematologic/Lymphatic: Reports systems reviewed and no addt'l complaints, except as documented Physical Exam Const alert, oriented x3 and no apparent distress Neck full ROM Resp normal respiratory effort, normal air movement and no retractions Effort and Inspection: able to speak in complete sentences and symmetric chest movement GI soft to palpation Bladder / Kidney Exam: bladder normal to palpation Uterus Palpation: uterus fundus firm Extremity normal to inspection and full ROM Psych mental status grossly normal, thought process normal and cooperative Assessment & Plan (1) Vaginal delivery: COMMENT: KW IOL pre e boy PLAN: s/p PPD # 3 1. routine post delivery care 2. breast feeding- support given 3. rh positive 4. rubella immune 5. Discharge home if BPs stable (2) Pre-eclampsia affecting puerperium: COMMENT: Procardia and labetalol started PP-follow up BP next week (3) Exposure to virus: COMMENT: exposure to chicken pox during . Immune (4) Venous keller: COMMENT: MFM cleared. return to [facility] at 32 weeks for reevaluation 08/12/24/nl growth. Resolved (5) Rh negative state in antepartum period: COMMENT: Baby is Rh negative. rhogam is not needed (6) Rubella non-immune status, antepartum: COMMENT: result is equivocal. needs vaccinated (7) Supervision of high-risk : QUALIFIERS: Trimester: third trimester Qualified Code(s): O09.93 - Supervision of high risk , unspecified, third trimester COMMENT: PRR, , MINESH 10/07/24, boy Torsten (8) : QUALIFIERS: Weeks of gestation: 38 weeks Qualified Code(s): Z3A.38 - 38 weeks gestation of COMMENT: GBS neg, NIPT low risk. carrier and ntd screen declined. Charges/Coding Multi Select Codes Urinary/Genital Urinary/Genital CPT Codes: No Charge
[2024-09-29] MEDS: Ibuprofen 600 MG Tablet PO (15:53)
[2024-09-29 22:29] LABS: Absolute Lymphocyte Count 1.53 X10^3/uL (0.83-4.51); Absolute Neutrophil Count 6.9 X10^3/uL (2.0-7.7); Basophil# 0.02 X10^3/uL; Basophil% 0.2 % (0-1); Eosinophil# 0.24 X10^3/uL; Eosinophils% 2.6 % (0-5); Hematocrit 36.5 % (37-47); Hemoglobin 11.8 g/dL (12.0-15.0); Lymphocyte # 1.53 X10^3/ul (0.83-4.51); Lymphocyte % 16.5 % (19-41); Mean Corp Hgb Conc 32.3 g/dL (32-36); Mean Corpuscular Volume 86.5 fL (81-99); Mean Platelet Vol. 9.9 fl (6.2-12.0); Monocyte# 0.57 X10^3/uL; Monocyte% 6.1 % (0-10); NRBC Flagged by Analyzer 0 % (0-5); Neutrophil % 74.2 % (47-70); Platelet Count 257 K/mm3 (150-450); RBC Distribution Width CV 13.3 % (11.6-14.6); RBC Distribution Width SD 41.2 fl (35.1-43.9); Red Blood Count 4.22 M/mm3 (4.2-5.4); White Blood Count 9.3 K/mm3 (4.4-11.0)
[2024-09-29 22:46] LABS: ALB/GLOB Ratio 0.6 RATIO (0.9-2.4); AST(SGOT) 33 U/L (15-37); Alanine Aminotransfer ALT/SGPT 29 U/L (13-56); Albumin, Serum 2.6 g/dL (3.2-5.0); Alkaline Phosphatase 156 U/L (45-117); Anion Gap 8 (5-15); BUN 10 mg/dL (7-18); BUN/Creat Ratio 16.1 RATIO (10-20); Calcium,Total 9.2 mg/dL (8.5-10.1); Chloride 107 mmol/L (98-107); Creatinine, Serum 0.62 mg/dL (0.55-1.02); EST Glomerular Filtration Rate 122 mL/min (>60); Est Glom Filt Rate - Afr Amer 147 mL/min (>60); Estimated Creatinine Clearance 161.94 ml/min; Globulin 4.5 g/dL (2.2-4.2); Glucose 97 mg/dL (74-106); Potassium 3.5 mmol/L (3.5-5.1); Protein, Total 7.1 g/dL (6.4-8.2); Sodium Level 142 mmol/L (136-145)
--- NOTE | 2024-10-01 07:10 | PCM.DC.SUM ---
Providers Date of Admission: 09/25/24 Date of Discharge: 09/29/24 Primary Care Physician: Ashlie Primary Care Phys Reason For Visit: VAG DELIVERY/preeclampsia Diagnosis Discharge Diagnosis (1) Vaginal delivery: Status: Acute Code(s): O80 - Encounter for full-term uncomplicated delivery Plan: s/p PPD # 3 1. routine post delivery care 2. breast feeding- support given 3. rh positive 4. rubella immune 5. Discharge home if BPs stable (2) Pre-eclampsia affecting puerperium: Status: Acute Code(s): O14.95 - Unspecified pre-eclampsia, complicating the puerperium Plan: Procardia and Labetalol started PP for elevated blood pressures (3) Exposure to virus: Status: Acute Code(s): Z20.828 - Contact with and (suspected) exposure to other viral communicable diseases (4) Venous keller: Status: Acute Code(s): R23.8 - Other skin changes (5) Rh negative state in antepartum period: Status: Acute Code(s): O26.899 - Other specified related conditions, unspecified trimester; Z67.91 - Unspecified blood type, Rh negative (6) Rubella non-immune status, antepartum: Status: Acute Code(s): O09.899 - Supervision of other high risk pregnancies, unspecified trimester; Z28.39 - Other underimmunization status (7) Supervision of high-risk : Status: Acute Code(s): O09.90 - Supervision of high risk , unspecified, unspecified trimester Qualifiers: Trimester: third trimester Qualified Code(s): O09.93 - Supervision of high risk , unspecified, third trimester (8) : Status: Acute Code(s): Z34.90 - Encounter for supervision of normal , unspecified, unspecified trimester Qualifiers: Weeks of gestation: 38 weeks Qualified Code(s): Z3A.38 - 38 weeks gestation of Medications at Discharge Home Medications multivitamin no.47-iron fum 27 mg-folate no.1 1 mg-dha 300 mg capsule (PNV-DHA) cap PO 03/04/24 labetalol 200 mg tablet 200 mg PO TID #90 tabs 09/29/24 nifedipine 60 mg tablet,extended release 24 hr 60 mg PO DAILY #30 tabs 09/29/24 Hospital Course Operations None Procedures None Summary of Care Provided Minutes Spent on Discharge: 30 Hospital Course: IOL for preeclampsia. Delivery uneventful (see note) and during course blood pressures started to steadily rise. Consulted with Dr Verma and decision made for Procardia and Labetalol to be started. BPs stabilized by day of D/C Physical Exam Narrative Doing well. in SCN. Denies headache, dizziness, blurred vision. Eating and drinking well. Lochia stable. No concerns Const alert, oriented x3 and no apparent distress Neck full ROM Resp normal respiratory effort, normal air movement and no retractions Effort and Inspection: able to speak in complete sentences and symmetric chest movement GI soft to palpation Bladder / Kidney Exam: bladder normal to palpation Uterus Palpation: uterus fundus Extremity normal to inspection and full ROM Psych mental status grossly normal, thought process normal and cooperative Weight / BMI Weight Weight: 192 lb Body Mass Index (BMI) 27.5 ABG / Lab / Microbiology Data 09/29/24 22:05 09/29/24 22:05 D/C Instructions Discharge Diet: No restrictions May shower in (days): 0 May resume sexual activity in: 6-8 weeks Weight Bearing Status: Full weight bearing Call your doctor if your incision/area has: Continuous Slow Oozing, Sudden Increased Bleeding, Increased Pain/ Swelling, Increased Redness and Foul Smelling Discharge Call your doctor if you observe: Fever of 101 or Higher, Coldness, Increased Pain, Numbness or Tingling, Change in Color, Inability to urinate, Inability to have a bowel movement, Using more than 1 pad per hour, Shortness of breath, Dizziness, Fainting spells, Swelling in the ankles, Chest pain, Increased palpitations (irregular heartbeat), Calf discomfort and Uncontrolled pain Suture Line Care: Avoid Pulling/Pushing and Avoid Pinching/Bending Cleanse incision/area with: Soap & Water and Keep Dressing Clean & Dry DC O2, CPAP, BIPAP Needs Home O2 Discharge instructions: No Please Follow Up With: Gaby Corrigan CNM When: Please call the office to schedule your follow up appointment in 6 weeks. If you had high blood pressure please call to schedule an appointment in 2 weeks. Meaningful Use Info Meaningful Use Meaningful Use Diagnoses (Choose all that apply): None applicable Ischemic Stroke Statin Dosing Therapy Reference: STATIN DOSE THERAPY REFERENCE: * Patients > 75 years receive moderate or high dose statin therapy. * Patients 75 years or YOUNGER should receive HIGH intensity statin dose unless contraindicated. You will be required to document reason for non-treatment if statin daily dose does not meet guidelines. HIGH DOSE STATIN THERAPY DAILY Atorvastatin > than or = to 40 mg Rosuvastatin > than or = to 20 mg Amlodipine + Atorvastatin > than or = to 2.5/40 mg Ezetimibe + Simvastatin 10/80 mg Simvastatin 80mg Discharge Plan Admission Admit Date/Time: 09/25/24 16:15 Attending Provider: Gaby Corrigan Primary Care Provider: Care Physician,No Primary Instructions Patient Instructions: After a Vaginal , Pain After Childbirth, Understanding Preeclampsia Discharge Orders/Prescriptions Prescriptions: New labetalol 200 mg Tablet 200 mg PO TID Qty: 90 2RF nifedipine 60 mg Tablet Extended Release 24hr 60 mg PO DAILY Qty: 30 2RF No Action PNV-DHA 27 mg iron-1 mg -300 mg capsule PO Referrals / Follow Up: Care Physician,No Primary [Primary Care Provider] - Disposition Disposition (needs filled in before D/C Order can be placed): Home, Self Care Charges/Coding Multi Select Codes Urinary/Genital Urinary/Genital CPT Codes: No Charge
== END 2024-09-29 23:20 | disposition home or self-care (01) | DRG 807 ==
LOC: WPOUT 16:26 → WP 16:26
PROVIDERS: Obstetrics & Gynecology; Admitting Provider Advanced Practice Midwife; Referring Provider Advanced Practice Midwife; Visit Provider Advanced Practice Midwife
DX: O14.94 Unspecified pre-eclampsia, complicating childbirth (principal); Z37.0 Single live birth; O26.893 Other specified pregnancy related conditions, third trimester; O36.63X0 Maternal care for excessive fetal growth, third trimester, not applicable or unspecified; Z67.21 Type B blood, Rh negative; Z3A.38 38 weeks gestation of pregnancy
CPT/HCPCS: 80053; 82565; 82570; 84156; 84450; 84460; 84550; 85025; 85027; 86780; 86850; 86900; 86901; A4216; J2405